=== PATIENT | male | born 1950 | race Caucasian/White ===

== ENCOUNTER 2016-12-06 19:11 | Inpatient (IN) | payer MEDICARE ==
[~2016-12-06] VITALS: Ht 182.9 cm; Wt 71.0 kg
[2016-12-06 19:46] VITALS: BP 103/53; PULSE 88; RESP 16; O2SAT 96
--- NOTE | 2016-12-06 19:56 | ED.REPORT ---
HPI-Hip/Pelvis Prob/Inj Date of Service Dec 06, 2016 ED Provider: Hunter Sagastume PA-C Toby is an otherwise healthy 66-year-old male presenting to the emergency department with a chief complaint of left hip pain. Patient reports he was hiking down a trail when his pulse slipped causing him to lose his balance and fall over. He rolled down an embankment which he estimates to be approximately 10 feet. He denies any period of free-fall. He reports striking his head but denies losing consciousness. Patient was unable to walk due to pain in his left hip and was dragged back to the [place] by his sister. He remained there for several hours before being helped out by EMS. Also complains of right ankle pain. Nursing Notes Stated Complaint: FALL,LEFT HIP PAIN Chief Complaint: Multiple Trauma/Fall Nursing Notes Reviewed: Yes Allergies: Coded Allergies: Penicillins (Verified Allergy, Unknown, 12/06/16) General Time Seen by Provider: 19:43 Chief Complaint Hip injury left Past Medical History Past Medical History Denies Review of Systems Review of Systems Note: Negative unless stated otherwise in history of present illness Physical Exam General: Well appearing, well developed, well nourished, no acute distress. Left hip: Normal to inspection, nontender. Left knee: Normal to inspection, nontender Left ankle/foot: normal to inspection, nontender, DP and PT pulses 2+. Right/ankle: Normal to inspection, negative tenderness over medial or lateral malleoli, base of fifth minute tarsal, navicular. Nontender over ATF, PTF, calcaneofibular and deltoid ligaments. Achilles is intact. DP and PT pulses 2+ . Head: Small, shallow 2 cm laceration above left eye. Neck: Negative midline spinous process tenderness, good range of motion. Eyes: No scleral icterus or injection. No discharge. Vision grossly intact. ENT: Voice clear, hearing grossly intact. Respiratory: Regular rate and rhythm. Breath sounds present, clear to auscultation and equal bilaterally. No respiratory distress. No increased work of breathing, speaks in complete sentences. Cardiovascular: Regular rate and rhythm, without murmur, gallop or rub. No pedal edema. Gastrointestinal: Abdomen flat and non-tender without guarding or rebound. Bowel sounds normoactive. Skin: Warm and dry. Neurological: Grossly nonfocal. Psychological: Alert and oriented. Speech appropriate, linear and logical. Behavior appropriate. Initial Vital Signs Vital Signs (First) Date Time Temp Pulse Resp B/P Pulse Ox O2 Delivery O2 Flow Rate FiO2 12/06/16 19:46 37.4 88 16 103/53 96 Room Air Normal Interpretation & Diagnostics Interpretation & Diagnostics: PROCEDURE: CT CERVICAL SPINE WITHOUT CONTRAST ([id number]) INDICATIONS: fall IMPRESSION: No fracture. No acute osseous lesion. If there are persistent symptoms or continued clinical suspicion for pathology, then MRI should be considered for further evaluation. PROCEDURE: CT BRAIN WITHOUT CONTRAST ([id number]) INDICATIONS: fall with head injury IMPRESSION: No acute intracranial disease process. Lab Results Interpretation Test 12/06/16 20:20 X-Ray Chest Interpretation Chest Xray Interpretation: PROCEDURE: X-RAY CHEST ONE VIEW ([id number]) INDICATIONS: PRE-OP, left hip fracture. IMPRESSION: No acute cardiopulmonary disease process. Interpretation / Wet Read by: Interpret - Radiologist X-Ray Interpretation Xray Interpretation: PROCEDURE: X-RAY PELVIS W/LAT HIP (LT) ([id number]) INDICATIONS: fall with pain IMPRESSION: Transcervical fracture of the left femoral neck. Interpretation / Wet Read by: Interpret - Radiologist, Interp - [facility] Procedures Laceration Management Time: 20:46 Wound Length: 3 cm Local Anesthesia: Other (none) Wound Preparation: Shurclens, Betadine Irrigation: 150 cc Foreign Body Explore / Removal: Explored for foreign body Repair Skin: Dermabond Closure Layers: 1 Post-Procedure / Complications: Dressing applied, No complications, Condition improved, Tolerated procedure well, Patient stable Re-Eval/Medical Decision Med Decision/Clinical Course Otherwise healthy 66-year-old male presents to emergency department complaining of left hip pain after a fall from a hiking [place] apparently precipitated by a slip with a ski pole. Patient reports striking his head but denies losing consciousness. Complains of right ankle pain His exam is somewhat limited as the leg remains in a splint, but his left hip and knee are nontender. Neurovascularly intact distal. Examination of the right foot and ankle is normal as well. He has a small, shallow laceration above his left eye. Patient was medicated with fentanyl by medics and I am concerned that his exam is not completely reliable to rule out head or neck injury. CT of the head and C-spine are ordered and returned normal. X-ray reveals a left femoral neck fracture. I discussed the case with Dr. Quintero , who requested patient be nothing by mouth after midnight and admitted to the hospitalist service. Consult in the morning. Laceration above left eye is treated per the above note. Discussed the case with hospitalist, who accepts admission. The patient is transferred to the floor in stable condition. Consultation #1: Referral / Consult Name: Cristian Quintero DO Call Returned at: 20:47 Note: Request patient be made nothing by mouth after midnight, admitted to hospitalist service. She will consult in the morning. Consultation #2: Referral / Consult Name: Meche Marcus MD Consulted With: Hospitalist Call Returned at: 21:14 Note: Discussed the case, accepted admit. Discharge & Departure Impression: Primary Impression: Fracture of femoral neck, left Encounter type: initial encounter Fracture type: closed Qualified Code: S72.002A - Fracture of unspecified part of neck of left femur, initial encounter for closed fracture Disposition: ADMITTED TO HOSPITAL EDSupervising Provider for APC: Camden Marquez Seth PA-C Dec 06, 2016 19:56
--- NOTE | 2016-12-06 20:35 | DRSVH ---
PROCEDURE: CT CERVICAL SPINE WITHOUT CONTRAST ([id number]) INDICATIONS: fall TECHNIQUE: Noncontrast 3 mm thick sections acquired from the skull base to the T4 level. Sagittal and coronal r eformats were then constructed. For radiation dose reduction, the following was used: automated exp osure control, adjustment of mA and/or kV according to patient size. COMPARISON: None. FINDINGS: Image quality: Excellent. Bones: There is reversal of normal cervical spine curvature. No fractures or dislocations. Visualiz ed superior ribs are intact. There is 2 mm of C3-C4 degenerative anterolisthesis. There is trace, ap proximately 1 mm of C4-C5 and C5-C6 degenerative retrolisthesis. Spine degenerative disease and face t arthropathy noted. Soft tissues: Prevertebral soft tissues are normal in thickness. No paravertebral hematomas. No ap ical pneumothoraces. IMPRESSION: No fracture. No acute osseous lesion. If there are persistent symptoms or continued clin ical suspicion for pathology, then MRI should be considered for further evaluation. Dictated by: Sindy Canela MD, PhD on 12/06/2016 at 20:28 Approved by: Sindy Canela MD, PhD on 12/06/2016 at 20:34
--- NOTE | 2016-12-06 20:37 | DRSVH ---
PROCEDURE: CT BRAIN WITHOUT CONTRAST ([id number]) INDICATIONS: fall with head injury TECHNIQUE: Noncontrast 4.5 mm thick angled axial sections acquired from the foramen magnum to the vertex, with c oronal reformats. COMPARISON: None. FINDINGS: Image quality: Excellent. CSF spaces: Basal cisterns are patent. No extra-axial fluid collections. The ventricles are symmet lee ann in size and shape. Brain: No intracranial bleeds or masses. There is cerebral volume loss for age, with resultant vent ricular and sulcal prominence. There are periventricular and deep white matter chronic small vessel ischemic changes. There is intracranial internal carotid artery atherosclerosis. Skull and face: Calvarium and visualized facial bones appear intact, without suspicious lesions. Sinuses: Mild mucosal thickening noted in the left maxillary sinus. The mastoids are clear. IMPRESSION: No acute intracranial disease process. Dictated by: Sindy Canela MD, PhD on 12/06/2016 at 20:34 Approved by: Sindy Canela MD, PhD on 12/06/2016 at 20:36
--- NOTE | 2016-12-06 20:38 | DRSVH ---
PROCEDURE: X-RAY PELVIS W/LAT HIP (LT) ([id number]) INDICATIONS: fall with pain TECHNIQUE: AP pelvis with lateral view(s) of the left hip(s). COMPARISON: None. FINDINGS: Bones: Transcervical fracture of the left femoral neck is noted which is in varus angulation. Soft tissues: The visualized bowel gas pattern is normal. No suspicious soft tissue calcifications. IMPRESSION: Transcervical fracture of the left femoral neck. Dictated by: Sindy Canela MD, PhD on 12/06/2016 at 20:36 Approved by: Sindy Canela MD, PhD on 12/06/2016 at 20:37
--- NOTE | 2016-12-06 20:53 | DRSVH ---
PROCEDURE: X-RAY CHEST ONE VIEW ([id number]) INDICATIONS: PRE-OP, left hip fracture. TECHNIQUE: One view of the chest was acquired. COMPARISON: None. FINDINGS: Surgical changes and devices: None. Lungs and pleura: No pleural effusions or pneumothorax. Lungs are clear. Calcified granuloma noted in the right lung apex. Mediastinum: Mediastinal contours appear normal. Heart size is normal. Bones and chest wall: No suspicious bony lesions. Overlying soft tissues appear unremarkable. IMPRESSION: No acute cardiopulmonary disease process. Dictated by: Sindy Canela MD, PhD on 12/06/2016 at 20:51 Approved by: Sindy Canela MD, PhD on 12/06/2016 at 20:52
[2016-12-06] MEDS ORDERED: Tissue Adhesive Liq (CS Supplied) TOPICAL ONE (20:55)
[2016-12-06] MEDS ORDERED: HYDROmorphone 0.5 mg/0.5 mL iSecure Syringe IVPUSH PRN (21:25)
[2016-12-06] MEDS ORDERED: Alum-Mag Hydrox-Simeth 30 mL Suspension PO PRN (22:00)
[2016-12-06] MEDS ORDERED: Ondansetron 2 mg/mL 2 mL Inj IVPUSH PRN ×2 (22:00→22:50)
[2016-12-06 22:18] LABS: APPEARANCE,URINE CLEAR (CLEAR,HAZY); COLOR,URINE YELLOW (YELLOW); OCCULT BLOOD,URINE NEGATIVE (NEGATIVE); UROBILINOGEN,URINE NORMAL (NORMAL)
[2016-12-06 22:33] LABS: BASOPHILS % (AUTO) 0.1 % (0-3); EOSINOPHILS % (AUTO) 0 % (0-5); MONOCYTES % (AUTO) 6.3 % (4-12); Mean Corpuscular Hemoglobin 32.9 pg (27.0-35.0); Mean Corpuscular Volume 95.1 fL (81-100); Platelet Count 185 bil/L (150-400)
[2016-12-06 22:48] VITALS: BP 121/64; PULSE 87; RESP 16; O2SAT 97
--- NOTE | 2016-12-06 23:09 | PCM.HPMED ---
Subjective Date of Service Dec 06, 2016 Primary Provider: Admitting Physician: Meche Marcus MD Primary Care Physician: Nopcp Attending Physician: Meche Marcus MD Admit Status: From the Emergency Department, Full Admit, Non-Telemetry Chief Complaint: Ground-level fall with left femoral neck fracture. History of Present Illness: This is a 66-year-old male who presented to the emergency room with complaints of left hip pain. Earlier today he was hiking down in [place] and ended up slipping and falling. He lost his balance. So did hit his head and has superficial abrasion on left forehead area. Patient was brought in by EMS. His evaluation in the emergency room reveals transcervical fracture left femoral neck. This laceration of his forehead was closed with Dermabond in the emergency room. Patient denies any history of heart problems or pulmonary problems. He denies chest pain, shortness of breath, cough, fevers or chills. Review of Systems: All other review systems are reviewed and are negative except for as in history of present illness. Allergies Coded Allergies: Penicillins (Verified Allergy, Unknown, 12/06/16) Home Medications None PMH Surgical History Status post tonsillectomy Social History Hx Alcohol Use: Yes (at most 1 drink per month) Hx Tobacco Use: No Smoking Status: Former Smoker (approximately 20 years ago) Living Arrangement: with Friends/Roommate Exam Vital Signs Vital Sign - Last Date Time Temp Pulse Resp B/P Pulse Ox O2 Delivery O2 Flow Rate FiO2 12/06/16 22:48 37.1 87 16 121/64 97 Room Air Exam Constitutional: Middle-aged male in no acute distress Head: Normocephalic, atraumatic Eyes PERRLA DC EOMI Mouth: No lesions Neck: No adenopathy carotids 2+ over 4 without bruits Chest: Clear to auscultation Cor: Regular rate and rhythm S1-S2 without murmur Abdomen: Soft nontender bowel sounds present Extremities: No pedal edema, left leg is externally rotated Skin: No rashes Neuro: Alert and oriented 3, motor strength is intact bilaterally Lab and Diagnostics Labs Laboratory Tests 72 Hours Test 12/06/16 20:20 12/06/16 21:56 12/06/16 22:24 Hold Urine Received (Received) Urine Color Yellow (YELLOW) Urine Appearance Clear (CLEAR,HAZY) Urine pH 8.0 (5.0-8.0) Urine Specific [place] 1.015 (1.003-1.035) Urine Protein Tracemg/dL (NEG,TRACE) Urine Glucose (UA) Negativemg/dL (NEGATIVE) Urine Ketones >80mg/dL (NEGATIVE) Urine Occult Blood Negative (NEGATIVE) Urine Nitrite Negative (NEGATIVE) Urine Bilirubin Negative (NEGATIVE) Urine Urobilinogen Normalmg/dL (NORMAL) Urine Leukocyte Esterase Negative (NEGATIVE) Urine RBC 0-2/hpf (0-2) Urine WBC 0-5/hpf (0-5) Urine Epithelial Cells Occasional/hpf (NONE-MOD) Urine Crystals None seen (NONE SEEN) Urine Bacteria Few/hpf (NONE-FEW) Urine Hyaline Casts None/lpf (NONE) Urine Granular Casts None seen (NONE SEEN) Urine Waxy Casts None seen (NONE SEEN) Urine Red Blood Cell Casts None seen (NONE SEEN) Urine White Blood Cell Casts None seen (NONE SEEN) Urine Mucus Present (None Seen) Urine Trichomonas None seen (NONE SEEN) Urine Yeast None (NONE SEEN) Urinalysis Comment None Urine Culture Reflexed Not indicated White Blood Count 8.5th/mm3 (3.8-10.1) Red Blood Count 4.07mil/mm3 (4.40-5.80) Hemoglobin 13.4g/dL (13.8-17.2) Hematocrit 38.7% (41.0-50.0) Mean Corpuscular Volume 95.1fL (81-100) Mean Corpuscular Hemoglobin 32.9pg (27.0-35.0) Mean Corpuscular Hemoglobin Concent 34.6% (32.0-37.0) Red Cell Distribution Width 12.0% (12.3-15.4) Platelet Count 185bil/L (150-400) Neutrophils (%) (Auto) 85.0% (40-74) Lymphocytes (%) (Auto) 8.4% (14-46) Monocytes (%) (Auto) 6.3% (4-12) Eosinophils (%) (Auto) 0% (0-5) Basophils (%) (Auto) 0.1% (0-3) Sodium Level 131mEq/L (134-144) Potassium Level 3.9mEq/L (3.5-5.2) Chloride Level 97mEq/L (97-108) Carbon Dioxide Level 20mmol/L (18-29) Blood Urea Nitrogen 17mg/dL (8-27) Creatinine 0.65mg/dL (0.76-1.27) Estimat Glomerular Filtration Rate 131mL/min (>59) Glucose Level 113mg/dL (60-99) Calcium Level 8.2mg/dL (8.5-10.1) Total Bilirubin 0.9mg/dL (0.0-1.2) Aspartate Amino Transf (AST/SGOT) 31U/L (0-50) Alanine Aminotransferase (ALT/SGPT) 18U/L (0-44) Alkaline Phosphatase 40U/L (25-160) Total Protein 6.1g/dL (6.4-8.4) Albumin 3.7g/dL (3.4-5.0) Hold Brown Top Tube Received (Received) Result Diagram: 12/06/16222312/06/162223 X-Rays, CTs and MRIs PROCEDURE: X-RAY CHEST ONE VIEW ([id number]) INDICATIONS: PRE-OP, left hip fracture. TECHNIQUE: One view of the chest was acquired. COMPARISON: None. FINDINGS: Surgical changes and devices: None. Lungs and pleura: No pleural effusions or pneumothorax. Lungs are clear. Calcified granuloma noted in the right lung apex. Mediastinum: Mediastinal contours appear normal. Heart size is normal. Bones and chest wall: No suspicious bony lesions. Overlying soft tissues appear unremarkable. IMPRESSION: No acute cardiopulmonary disease process. Dictated by: Sindy Canela MD, PhD on 12/06/2016 at 20:51 Approved by: iSndy Canela MD, PhD on 12/06/2016 at 20:52 12-lead ECG Pending at the time this dictation Assessment & Plan # Left femoral neck fracture, acute, present on admission -Orthopedic surgery has already been notified regarding this patient and will see in a.m. -IV morphine when necessary pain -Check 12-lead EKG -Complete metabolic panel pending # DVT prophylaxis -Since surgery will occur tomorrow we will hold subcutaneous prophylactic anticoagulation -Use SCDs #CODE STATUS -Focal VTE Prophylaxis: SCDs Resuscitation Status: CPR: Attempt Resuscitation Time spent 60 minutes Meche Marcsu MD Dec 06, 2016 23:08
[2016-12-06 23:10] VITALS: BP 112/68; PULSE 88; RESP 16; O2SAT 98
[2016-12-07] VITALS (14 sets, daily range): BP systolic 108–143; BP diastolic 59–76; PULSE 64–113; RESP 10–17; O2SAT 98–100
[2016-12-07] MEDS ORDERED: ASCO-412 PO (00:20)
[2016-12-07] MEDS: 0.9% Sodium Chloride 1,000 ML IV SCH ×3 (02:17→18:37)
--- NOTE | 2016-12-07 03:35 | NUR ---
Admit Pt is alert and oriented X3. Pleasant and able to make needs known. Arrived to unit from ED via stretcher around 2300. No complaint of pain. Denies nausea, vomiting or diarrhea. Sliding transfer from stretcher to bed with four staff assist. NPO after midnight per orders and normal saline running at 100ml/hr. No issue at this current moment. Care continues.
[2016-12-07 06:15] LABS: BASOPHILS % (AUTO) 0.1 % (0-3); EOSINOPHILS % (AUTO) 0.8 % (0-5); Mean Corpuscular Hemoglobin 33.3 pg (27.0-35.0); Mean Corpuscular Volume 95.2 fL (81-100); NEUTROPHILS % (AUTO) 74.8 % (40-74); Platelet Count 202 bil/L (150-400)
--- NOTE | 2016-12-07 08:46 | CONS ---
[address] [address] CONSULTATION REPORT PATIENT: KIZZY TENORIO : 1950 MR#: [id number] ADMIT: 12/06/2016 JOB ID: [id number] DATE OF SERVICE: 12/07/2016 ORTHOPEDIC CONSULT: CHIEF COMPLAINT: Left hip pain. HISTORY OF PRESENT ILLNESS: This is a pleasant 66-year-old male that presented yesterday evening with left hip pain. He was hiking for the first time utilizing hiking poles when he states he twisted wrong and landed onto his left side. He immediately had left hip pain and was unable to further ambulate with the left lower extremity. He was transported to the hospital here at [facility], where he was diagnosed with a femoral neck fracture. Orthopedics was consulted for further evaluation and treatment. The patient complains mainly of left hip pain. He states he did have some ankle pain yesterday but it has since resolved. He denies any paresthesias. He denies any other associated symptoms or injuries. PAST MEDICAL HISTORY: Negative. PAST SURGICAL HISTORY: Negative. FAMILY HISTORY: Noncontributory. SOCIAL HISTORY: The patient denies any tobacco utilization, drinks occasional alcohol, lives with a friend in [facility]. MEDICATIONS: None. ALLERGIES: PENICILLIN with unknown allergy. REVIEW OF SYSTEMS: The patient denies any fevers, sweats, chills, chest pain, shortness of breath, nausea, vomiting, or diarrhea. Complains mainly of left hip pain as described in the history of present illness. PHYSICAL EXAMINATION: General: The patient is alert, in no apparent distress. HEENT: Normocephalic, atraumatic. Extraocular movements intact. Nares patent. Lungs: No audible wheezes or signs of respiratory distress. Neuro: Cranial nerves 2-12 are intact. Extremities: On gross observation of the patient's left lower extremity it is short and externally rotated compared to the contralateral side. There are no open wounds, abrasions, or ecchymosis. He has tenderness to palpation to the lateral head and pain with any attempts at log roll or axial loading of the left lower extremity. There are palpable dorsalis pedis and posterior tib pulses. No tenderness to the medial or lateral malleoli. The patient is able to dorsiflex and plantar flex the ankle without any difficulty. There is also no tenderness to palpation of the medial or lateral joint lines of the knee without any palpable effusion. Range of motion of the knee is limited secondary to reproduction of pain to the hip with knee range of motion. DIAGNOSTIC STUDIES: AP of the pelvis, as was as lateral of the hip, was obtained yesterday evening in the emergency department. Demonstrate an intracapsular displaced femoral neck fracture. IMPRESSION: Left intracapsular displaced femoral neck fracture. PLAN: Discussed with the patient at length his diagnosis with a displaced intracapsular femoral neck fracture. Discussed with him proceeding with a left hip hemiarthroplasty. He understands risks include, but are not limited to, neurovascular injury, tendon injury, infection, failure of fixation, instability, stiffness, all which may require further intervention. The patient had all questions answered. Consent was signed and placed in the chart. The patient will be scheduled this afternoon for a left hip hemiarthroplasty. Following surgery the patient will be weightbearing as tolerated onto the left lower extremity. He will either be discharged home with home health versus rehab versus senior care facility over the weekend. The patient has very minimal comorbidities and is relatively active for his age, and I feel he will rehab quickly and will be able to go home with home health. He will follow up in two weeks with one of our PAs for a wound recheck and then with me four weeks after that.
[2016-12-07] MEDS ORDERED: Propofol 10,000 mCg/mL 20 mL Inj ONE (11:56)
[2016-12-07] MEDS ORDERED: Ondansetron 2 mg/mL 2 mL Inj ONE (11:56)
[2016-12-07] MEDS ORDERED: EPHEDrine/NS 5 mg/mL 5 mL Syringe ONE (11:56)
[2016-12-07] MEDS ORDERED: fentaNYL-PF 50 mCg/mL 2 mL Inj ONE (11:56)
[2016-12-07] MEDS ORDERED: Dexamethasone 4 mg/mL Inj ONE (11:56)
[2016-12-07] MEDS ORDERED: Lactated Ringer's 500 ML IV PRN (12:20)
[2016-12-07] MEDS ORDERED: HYDROmorphone 1 mg/mL Inj IVPUSH PRN (12:20)
[2016-12-07] MEDS ORDERED: MetoCLOpramide 5 mg/mL 2 mL Inj IVPUSH PRN (12:20)
[2016-12-07] MEDS ORDERED: Ondansetron 2 mg/mL 2 mL Inj IVPUSH PRN ×2 (12:20→15:40)
[2016-12-07] MEDS ORDERED: Phenylephrine 10,000 mCg/mL Inj IVPUSH PRN (12:20)
[2016-12-07] MEDS ORDERED: fentaNYL-PF 50 mCg/mL 2 mL Inj IVPUSH PRN (12:20)
[2016-12-07] MEDS ORDERED: EPHEDrine Sulfate 50 mg/mL Inj IVPUSH PRN (12:20)
[2016-12-07] MEDS ORDERED: Lactated Ringer's 1,000 ML IV SCH (12:20)
[2016-12-07] MEDS ORDERED: Dexamethasone 4 mg/mL Inj IVPUSH PRN (12:20)
--- NOTE | 2016-12-07 12:20 | PCM.HPANE ---
Patient Data Date of Service: Dec 07, 2016 ([id number]) Surgeon Admitting Provider:Meche Marcus MD Attending Provider:Aden Cameron MD Primary Care Physician:Nopcp Other Provider: Reason for Visit L Femoral Neck Fracture Ht/WT & BMI Height (Feet): 6 Height (Inches): 0.00 Weight (Kilograms): 71.000 Body Mass Index .00 Allergies Coded Allergies: Penicillins (Verified Allergy, Unknown, 12/06/16) Past Anesthesia History Anesthesia History: Denies:: Anesthesia Reactions Diabetes History Hx Diabetes?: No MRSA MRSA: No Medications Hypertension Medication: No Home Meds Incl Beta Aracelis: No Reported Medications Ascorbic Acid/Ascorbate Sodium (Vit C-Evangelina Hips 500 mg Chew Tb)500 Mg Tab.chew2, 000 Mg PO 12/07/16 History History of ENT Problems?: No HEENT History: Denies:: Cataracts Dysphagia Glaucoma Sinus Problem Denture Type: None Teeth Condition: Within Normal Limits Hx of Heart Problems?: No Cardiovascular History: Denies:: Cardiac Surgery Chest Pain Congestive Heart Failure Heart Murmur Irregular Heartbeat Hx of Respiratory Problem?: Yes Respiratory History: Denies:: Asthma Hx Neurologic Problems?: No Hx of GI Problems?: No Hx of Problems?: No Male Hx: Denies:: Prostate Problems Hx Musculoskeletal Problems?: No Hx of Psycho/Social Problems?: No Hx Surgeries?: No Hx Any Other Health Problems?: No History Blood Transfusions: Positive for:: Accept Blood Products? Denies:: Blood Transfuse Reaction Blood Transfusions Hx Alcohol Use: YesAlcoholic Drinks Per Day: occasionallyHx Substance Use: No Smoking Status: Former Smoker (approximately 20 years ago) Have You Smoked inLast 12 mo: No Stop/Bang Treated for Sleep Apnea?: No Do You Have a CPAP Machine?: No S-Snoring: Do You Snore Loudly: No T-Tired: feel tired, fatigued: No O-Obsered: Observed not breath: No P-Blood Pressure: treated: No B- Body Mass Index > 35 kg/m2: No A- Age over 50: Yes N- Neck Large Circumference: No G- Gender Male: Yes MODESTO Total Score: 1 MODESTO Risk Assessment: Low Risk, <3 Yes Risk Assessment Category Category 1A: Patient has history of documented sleep apnea, and HAS NOT received any narcotic, sedative or anesthesia administration during this stay. Category 1B: Patient has history of documented sleep apnea, and HAS received any narcotic , sedative or anesthesia administration during this stay Category 2: Patient has SUSPECTED Obstructive Sleep Apnea, and HAS received any narcotic , sedative or anesthesia administration during this stay. Category 3: Patient has SUSPECTED Obstructive Sleep Apnea and HAS NOT received narcotic, sedative or anesthesia administration during this stay. Category 4: Outpatient in Procedural Areas with known sleep apnea or who screen positive for High Risk via the STOP/BANG questionnaire. Exam Exam Vital Signs Vital Signs Date Time Temp Pulse Resp B/P Pulse Ox O2 Delivery O2 Flow Rate FiO2 12/07/16 09:08 37.0 86 16 132/76 100 Room Air 12/07/16 05:10 36.8 85 16 123/70 99 Room Air General Appearance: Alert, Oriented X3 HEENT/AIRWAY: MP 1 Lungs: Clear to Auscultation Heart: Exam Unremarkable Meds/Labs/Diagnostics Admission Meds Current Medications Non-Formulary Medication 1 ea 1 ea ONCE ONCE TOPICAL Last administered on 12/06 21:40; Start 12/06/16 at 20:55; Stop 12/06/16 at 20:56; Status DC Sodium Chloride (Normal Saline) 1,000 ml @ 100 mls/hr Q10H IV Last administered on 12/07/16 10:34; Start 12/06/16 at 22:49 Labs Test 12/06/16 20:20 12/06/16 21:56 12/06/16 22:24 12/06/16 23:40 Hold Urine Received (Received) Urine Color Yellow (YELLOW) Urine Appearance Clear (CLEAR,HAZY) Urine pH 8.0 (5.0-8.0) Urine Specific [place] 1.015 (1.003-1.035) Urine Protein Tracemg/dL (NEG,TRACE) Urine Glucose (UA) Negativemg/dL (NEGATIVE) Urine Ketones >80mg/dL (NEGATIVE) Urine Occult Blood Negative (NEGATIVE) Urine Nitrite Negative (NEGATIVE) Urine Bilirubin Negative (NEGATIVE) Urine Urobilinogen Normalmg/dL (NORMAL) Urine Leukocyte Esterase Negative (NEGATIVE) Urine RBC 0-2/hpf (0-2) Urine WBC 0-5/hpf (0-5) Urine Epithelial Cells Occasional/hpf (NONE-MOD) Urine Crystals None seen (NONE SEEN) Urine Bacteria Few/hpf (NONE-FEW) Urine Hyaline Casts None/lpf (NONE) Urine Granular Casts None seen (NONE SEEN) Urine Waxy Casts None seen (NONE SEEN) Urine Red Blood Cell Casts None seen (NONE SEEN) Urine White Blood Cell Casts None seen (NONE SEEN) Urine Mucus Present (None Seen) Urine Trichomonas None seen (NONE SEEN) Urine Yeast None (NONE SEEN) Urinalysis Comment None Urine Culture Reflexed Not indicated Hold Brown Top Tube Received (Received) Alcohols < 10mg/dL (0-10) Test 12/07/16 05:45 White Blood Count 7.3th/mm3 (3.8-10.1) Red Blood Count 4.20mil/mm3 (4.40-5.80) Hemoglobin 14.0g/dL (13.8-17.2) Hematocrit 40.0% (41.0-50.0) Mean Corpuscular Volume 95.2fL (81-100) Mean Corpuscular Hemoglobin 33.3pg (27.0-35.0) Mean Corpuscular Hemoglobin Concent 35.0% (32.0-37.0) Red Cell Distribution Width 12.5% (12.3-15.4) Platelet Count 202bil/L (150-400) Neutrophils (%) (Auto) 74.8% (40-74) Lymphocytes (%) (Auto) 14.2% (14-46) Monocytes (%) (Auto) 10.0% (4-12) Eosinophils (%) (Auto) 0.8% (0-5) Basophils (%) (Auto) 0.1% (0-3) Sodium Level 139mEq/L (134-144) Potassium Level 3.9mEq/L (3.5-5.2) Chloride Level 103mEq/L (97-108) Carbon Dioxide Level 23mmol/L (18-29) Blood Urea Nitrogen 14mg/dL (8-27) Creatinine 0.65mg/dL (0.76-1.27) Estimat Glomerular Filtration Rate 131mL/min (>59) Glucose Level 107mg/dL (60-99) Calcium Level 8.6mg/dL (8.5-10.1) Magnesium Level 2.0mg/dL (1.6-2.6) Total Bilirubin 0.8mg/dL (0.0-1.2) Aspartate Amino Transf (AST/SGOT) 33U/L (0-50) Alanine Aminotransferase (ALT/SGPT) 18U/L (0-44) Alkaline Phosphatase 41U/L (25-160) Total Protein 5.9g/dL (6.4-8.4) Albumin 3.7g/dL (3.4-5.0) Plan Impression Patient chart reviewed, patient interviewed and anesthestic plan with risks, benefits, and alternatives discussed, and informed consent obtained. NPO per Anesth. Guidelines: Yes ASA Physical Status: ASA1 Normal Healthy Anesthetic Plan: SAB Bene/Risks/Altern/Consents: Yes HP Complete Prior to Induction: Yes Nitin Alexandre MD Dec 07, 2016 12:20
[2016-12-07] MEDS ORDERED: Lactated Ringer's 1,000 ML IV ONE ×2 (12:33→14:55)
--- NOTE | 2016-12-07 14:38 | PCM.PNMED ---
Subjective Date of Service Dec 07, 2016 Subjective Pain controlled. Awaiting surgery. Exam Vital Signs Vital Sign - Last Date Time Temp Pulse Resp B/P Pulse Ox O2 Delivery O2 Flow Rate FiO2 12/07/16 09:08 37.0 86 16 132/76 100 Room Air Intake and Output 12/06/16 12/06/16 12/07/16 Cumulative From/Thru 15:00 23:00 07:00 12/06/16 23:27 - 12/07/16 06:52 Intake Total 534 ml 534 ml Output Total 2075 ml 2075 ml Balance -1541 ml -1541 ml Intake Oral 100 ml 100 ml IV Total 434 ml 434 ml Output Urine Total 2075 ml 2075 ml # Bowel Movements 0 0 Exam Constitutional: Middle-aged male in no acute distress Head: Normocephalic, atraumatic Eyes PERRLA DC EOMI Mouth: No lesions Neck: No adenopathy carotids 2+ over 4 without bruits Chest: Clear to auscultation Cor: Regular rate and rhythm S1-S2 without murmur Abdomen: Soft nontender bowel sounds present Extremities: No pedal edema, left leg is externally rotated Skin: No rashes Neuro: Alert and oriented 3, motor strength is intact bilaterally IVs and Medications Medications Reviewed: Medications were reviewed in detail Lab and Diagnostics Result Diagram: 12/07/1654412/07/1645 X-Rays, CTs and MRIs PROCEDURE: X-RAY CHEST ONE VIEW ([id number]) INDICATIONS: PRE-OP, left hip fracture. TECHNIQUE: One view of the chest was acquired. COMPARISON: None. FINDINGS: Surgical changes and devices: None. Lungs and pleura: No pleural effusions or pneumothorax. Lungs are clear. Calcified granuloma noted in the right lung apex. Mediastinum: Mediastinal contours appear normal. Heart size is normal. Bones and chest wall: No suspicious bony lesions. Overlying soft tissues appear unremarkable. IMPRESSION: No acute cardiopulmonary disease process. Dictated by: Sindy Canela MD, PhD on 12/06/2016 at 20:51 Approved by: Sindy Canela MD, PhD on 12/06/2016 at 20:52 Assessment & Plan # Left femoral neck fracture, acute, present on admission -Orthopedic surgery consulted.OR later today -IV morphine when necessary pain -patient able to take > 2 flight of stairs with out any issues .METs 4-10 .medically optimized for procedure #CODE STATUS -full VTE Prophylaxis: SCDs VTE Mechanical Devices: Intermittant Pneumatic CD Resuscitation Status: CPR: Attempt Resuscitation Aden Cameron MD Dec 07, 2016 14:38 Resuscitation Status: CPR: Attempt Resuscitation Aden Cameron MD Dec 07, 2016 14:38
[2016-12-07] MEDS ORDERED: Bupivacaine-MPF 0.25% 30 mL Inj INFILTRATE ONE (15:02)
[2016-12-07] MEDS ORDERED: diphenhydrAMINE 25 mg Capsule PO PRN (15:40)
[2016-12-07] MEDS ORDERED: Magnesium Hydroxide 10 mL Oral Concentration PO PRN (15:40)
[2016-12-07] MEDS ORDERED: Polyethylene Glycol (PEG) 17 Gm Powder PO PRN (15:40)
[2016-12-07] MEDS ORDERED: Sodium Biphos-Phos 133 mL Enema RECTAL PRN (15:40)
--- NOTE | 2016-12-07 15:54 | PCM.ANEP1 ---
Post Anesthesia PACU Phase 1 Assessment Vital Signs 36.5, 117/65, 100%, 20, 92 Vital Signs Date Time Temp Pulse Resp B/P Pulse Ox O2 Delivery O2 Flow Rate FiO2 12/07/16 09:08 37.0 86 16 132/76 100 Room Air Anesthetic Administered: SAB Level of Alertness: Awake, talking PETERSON's with Equal Strength: Yes Pain: No Nausea or Vomiting: No CV Function & Hydration Stable: Yes Airway Device: none Oxygen Delivery: Room Air Lungs: Clear to Auscultation Dermatome Level: Full Sensation Summary uneventful SAB PACU Phase 2 Assessment Complications: No Follow up Care: No Patient Instructions Provided: N/A Nitin Alexandre MD Dec 07, 2016 15:53
[2016-12-07] MEDS: Sodium Chloride LOK Flush 10 mL Syringe IV SCH (16:30)
--- NOTE | 2016-12-07 17:30 | DRSVH ---
PROCEDURE: X-RAY PELVIS W/LAT HIP (LT) ([id number]) INDICATIONS: post op TECHNIQUE: AP pelvis and lateral view of the left hip acquired. COMPARISON: [facility], , XR PELVIS W LATERAL HIP LT, 12/06/2016, 20:02. FINDINGS: Bones: Patient is status post left hip arthroplasty, with hardware components in expected positions. The hip joint appears congruent. The visualized bony structures appear intact. Soft tissues: Overlying postoperative changes are noted. No suspicious soft tissue densities. IMPRESSION: Normal alignment after left total hip arthroplasty. Dictated by: Cristian Ng M.D. on 12/07/2016 at 17:19 Approved by: Cristian Ng M.D. on 12/07/2016 at 17:29
--- NOTE | 2016-12-07 17:38 | NUR ---
Social Work- Initial Assessment/ Multidisciplinary Rounds Data: See Initial Assessment and Advance Directive Intervention for additional information. Pt discussed in rounds. Pt received surgery today. Pt is not ready for discharge at this time. [facility] acknowledges HH PT 3x weekly order. PT evaluation is pending. Pt is a 66 year old admitted for left femoral neck fracture per H&P. Pt's insurance is [facility]. Pt's PCP is Dr. Zhang, [employer]. Pt's readmit risk score is 0. [facility] met with pt and sister at bedside regarding discharge plan, SW role explained. Pt alert and oriented x3. Pt's capacity for self-care assessed. Pt resides in [place] in a home with a roommate. Pt is independent with ADLs and self-care. Pt uses no DME at baseline. Pt drives. Pt has no history with HH services. Pt has no history with SNF services. Pt has no DPOA on file, provided pt with paperwork. SW discussed HHPT order with pt and pt's homebound status. Pt is not typically homebound and is typically very active. Pt was hiking at the time of his hip fracture. Pt may be temporarily homebound after surgery. Pt is agreeable to HH services if needed at d/c but expressed an interest in doing outpt services instead. [facility] provided Discharge planning Checklist and requested that pt contact [employer] if needs identified. SW provided phone number and plan on whiteboard. Pt's sister confirms she will take him home at d/c. Pt agreeable. SW will continue to follow for HH vs. outpt PT needs. Assessment: Pt who is independent with ADLs and self-care Plan: Pt to d/c home with his sister to transport, [facility] will continue to follow for HH vs. outpt PT services DAO Ibarra Addendum: 12/07/16 at 1743 by MARSHA CUEVA Amended: Links added.
[2016-12-07] MEDS: Clindamycin Inj 600 MG in IV Premix 1 EACH IV SCH (19:54)
[2016-12-07] MEDS: Senna-Docusate 8.6-50 mg Tablet PO SCH (20:30)
[2016-12-08] VITALS (7 sets, daily range): BP systolic 100–132; BP diastolic 55–73; PULSE 99–105; RESP 16–18; O2SAT 96–99
[2016-12-08] MEDS: Sodium Chloride LOK Flush 10 mL Syringe IV SCH ×3 (00:30→16:30)
[2016-12-08] MEDS: 0.9% Sodium Chloride 1,000 ML IV SCH ×2 (02:27→12:51)
--- NOTE | 2016-12-08 03:25 | NUR ---
Activity On initial assessment, patient has no complaints of pain. Patient states he has a "sensation" on the left hip area. Patient practices yoga consistently and states he can control the onset of pain. Patient is very pleasant and cooperative with care. Patient denied evening dose of Colace and Senna. No complaints of n/v. Call light is within reach. Care continues.
[2016-12-08] MEDS: Clindamycin Inj 600 MG in IV Premix 1 EACH IV SCH (04:25)
[2016-12-08 06:14] LABS: BASOPHILS % (AUTO) 0 % (0-3); EOSINOPHILS % (AUTO) 0 % (0-5); MONOCYTES % (AUTO) 13.9 % (4-12); Mean Corpuscular Hemoglobin 33.2 pg (27.0-35.0); NEUTROPHILS % (AUTO) 72.5 % (40-74); Platelet Count 160 bil/L (150-400)
--- NOTE | 2016-12-08 07:36 | PCM.PNORTH ---
Subjective Date of Service: Dec 08, 2016 Visit Information: Reason for Visit L Femoral Neck Fracture Surgery/Surgery Date Post-Op Day # 1 Date of Admission: Dec 06, 2016 at 22:21 Hospital Day # 2 Subjective Patient is seen and examined with her sister in the room. He is postoperative day #1 status post left hip hemiarthroplasty. He denies any pain. He states he has some left hip tightness and a stretching sensation but really no pain. He was able to sleep on and off overnight. He is tolerating fluids but is yet to have any solid foods. He is having normal bladder function but is yet to have any bowel movement as he has not had any food for quite some time. He is yet to be seen by therapy but he states he is ready to get up and start moving around so he can progress. Objective Exam Objective Gen - alert, oriented, no apparent distress Extremities - dressing is clean, dry and intact Palpable dorsalis pedis and posterior tibial pulses Complete intact sensation throughout the left lower extremity + Dorsiflexion and plantarflexion of the ankle and toes without difficulty No calf tenderness, negative Homans Vital Signs and I/O Vital Sign - Last Date Time Temp Pulse Resp B/P Pulse Ox O2 Delivery O2 Flow Rate FiO2 12/08/16 04:59 36.9 105 16 125/69 97 Room Air Intake and Output 12/07/16 12/07/16 12/08/16 Cumulative From/Thru 15:00 23:00 07:00 12/06/16 23:27 - 12/08/16 05:20 Intake Total 2039 ml 700 ml 2297 ml 5570 ml Output Total 450 ml 1775 ml 1800 ml 6100 ml Balance 1589 ml -1075 ml 497 ml -530 ml Intake Oral 500 ml 1100 ml 1700 ml IV Total 2039 ml 200 ml 1197 ml 3870 ml Output Urine Total 450 ml 1475 ml 1800 ml 5800 ml Estimated Blood Loss 300 ml 300 ml # Bowel Movements 0 0 0 Lab & Micro Results Laboratory Tests Test 12/08/16 05:30 White Blood Count 6.8th/mm3 (3.8-10.1) Red Blood Count 3.71mil/mm3 (4.40-5.80) Hemoglobin 12.3g/dL (13.8-17.2) Hematocrit 36.0% (41.0-50.0) Mean Corpuscular Volume 97.0fL (81-100) Mean Corpuscular Hemoglobin 33.2pg (27.0-35.0) Mean Corpuscular Hemoglobin Concent 34.2% (32.0-37.0) Red Cell Distribution Width 12.7% (12.3-15.4) Platelet Count 160bil/L (150-400) Neutrophils (%) (Auto) 72.5% (40-74) Lymphocytes (%) (Auto) 13.5% (14-46) Monocytes (%) (Auto) 13.9% (4-12) Eosinophils (%) (Auto) 0% (0-5) Basophils (%) (Auto) 0% (0-3) Result Diagram: 12/08/16 0530 12/07/16 0545 Assessment & Plan Impression Postoperative #1 status post left hip hemiarthroplasty Problems: Plan Start working with physical therapy for gait training with a walker he is weightbearing as tolerated Dressing changes tomorrow Plan likely for discharge on Sunday 12/10 likely home with home health pending progress with physical therapy Follow-up in 2 weeks with me in the office VTE Prophylaxis: SCDs Resuscitation Status: CPR: Attempt Resuscitation Cristian Quintero DO Dec 08, 2016 07:36
[2016-12-08] MEDS: Senna-Docusate 8.6-50 mg Tablet PO SCH ×2 (08:07→20:30)
[2016-12-08] MEDS ORDERED: HYDROcodone-APAP 5-325 mg Tablet PO PRN (10:15)
--- NOTE | 2016-12-08 10:31 | PCM.PNORTH ---
Subjective Date of Service: Dec 08, 2016 Visit Information: Reason for Visit L Femoral Neck Fracture Surgery/Surgery Date Post-Op Day # Date of Admission: Dec 06, 2016 at 22:21 Hospital Day # Subjective Found patient awake and alert and sitting up in bed with no complaints of pain at this time. Patient is a very pleasant gentleman and appears otherwise slender and very fit. I have had a long rocío discussion with the patient regarding pain medication which he has refused up to this point. On movement this morning patient indicates that he did have significant pain at the left hip and does not understand this. Patient is holisticly oriented and is reticent to take pain medication postoperatively. I have explained to the patient that this will impact his recovery negatively if he is in pain and is unable to participate with physical therapy to achieve mobility. I also explained to him that immobility can result in DVT and pulmonary embolus which can result in a fatal scenario. I have also explained to him that if he is immobile for extended period of time he could suffer pneumonia which could also be very problematic for his health. I have assured the patient is morning that we do not wish to enforce anything upon him that he is not willing to participate in but that based on experience we understand that he should consider pain control medications postoperatively to have a normal and reasonable outcome regarding his treatment. Patient's sister is in the room during this process and is also holisticly oriented and is in agreement with the patient using some pain medication initially. Postop General: No Complaints, No Shortness of Breath, No Chest Pain, Good Appetite Objective Exam Objective Alert and oriented 3 and pleasant. Interoperative dressing is clean dry and intact. Calf and thigh are soft and nontender. Toe wiggle and sensation are intact at left lower extremity distally. [place] is absent. SCDs are absent. Bilateral thigh-high HOLLEY hose are absent. No physical therapy yet as of this note Vital Signs and I/O Vital Sign - Last Date Time Temp Pulse Resp B/P Pulse Ox O2 Delivery O2 Flow Rate FiO2 12/08/16 09:24 37.8 105 18 132/73 99 Room Air Intake and Output 12/07/16 12/07/16 12/08/16 Cumulative From/Thru 15:00 23:00 07:00 12/06/16 23:27 - 12/08/16 05:20 Intake Total 2039 ml 700 ml 2297 ml 5570 ml Output Total 450 ml 1775 ml 1800 ml 6100 ml Balance 1589 ml -1075 ml 497 ml -530 ml Intake Oral 500 ml 1100 ml 1700 ml IV Total 2039 ml 200 ml 1197 ml 3870 ml Output Urine Total 450 ml 1475 ml 1800 ml 5800 ml Estimated Blood Loss 300 ml 300 ml # Bowel Movements 0 0 0 Lab & Micro Results Laboratory Tests Test 12/08/16 05:30 White Blood Count 6.8th/mm3 (3.8-10.1) Red Blood Count 3.71mil/mm3 (4.40-5.80) Hemoglobin 12.3g/dL (13.8-17.2) Hematocrit 36.0% (41.0-50.0) Mean Corpuscular Volume 97.0fL (81-100) Mean Corpuscular Hemoglobin 33.2pg (27.0-35.0) Mean Corpuscular Hemoglobin Concent 34.2% (32.0-37.0) Red Cell Distribution Width 12.7% (12.3-15.4) Platelet Count 160bil/L (150-400) Neutrophils (%) (Auto) 72.5% (40-74) Lymphocytes (%) (Auto) 13.5% (14-46) Monocytes (%) (Auto) 13.9% (4-12) Eosinophils (%) (Auto) 0% (0-5) Basophils (%) (Auto) 0% (0-3) Result Diagram: 12/08/16 0530 12/07/16 0545 General Appearance: Alert, Oriented X3, Cooperative, No Acute Distress, Mild Distress Extremities: No Compartment Syndrom Noted, Thigh & Calf Soft/Nontender Postop Sensory Motor: Distal Motor Intact, Movement in Toes, Distal Sensation Intact Activity: Activity per PT, Ambulate with PT (weightbearing as tolerated on the left lower extremity using a front wheeled walker.) Catheters: None Assessment & Plan Impression Patient is a 66-year-old male seen today one day status post left hip hemiarthroplasty performed on 12/07/[address] Cristian Quintero. Problems: Plan Postop day #1 from left hip hemiarthroplasty performed on 12/07/[address] Cristian Quintero. Weightbearing as tolerated on the left lower extremity using a front wheeled walker. Anterior lateral hip precautions in effect. PAIN CONTROL; Patient is holisticly oriented and was initially refusing any pain medication. Patient has had pain on movement at the left hip but believes since he does not have pain when he is still that he does not need pain medication. I have had a long talk with the patient this morning and his sister regarding the use of pain medication and with this will mean for his recovery and his health during this period. He has agreed to use pain medication at this time and I have given the nursing staff a selection of medications that they may try. Continue by mouth pain medication as needed with lowest dose that we will allow patient to participate with physical therapy. I have placed orders for several pain medications including tramadol, [place] and Percocet. Patient is in agreement at this time with trying [place] initially prior to his first PT session. Continue Lovenox 40 mg subcutaneous daily 28 days postop for DVT prophylaxis. Keep operative dressing clean dry and intact. Change intraoperative dressing on postop day #2. Nursing please fit patient with bilateral thigh-high HOLLEY hose as ordered today. Nursing please use bilateral SCDs while patient is in bed. Follow up in 2 weeks at [facility] orthopedic clinic with mid-level provider for wound check and suture removal. Follow up in 6 weeks at [facility] orthopedic clinic with Dr. Cristian Quintero with AP pelvis and left crosstable lateral hip x-rays on arrival. Anticipate discharge on postoperative day 2 or 3 to home with sister as caregiver. VTE Prophylaxis: Sub-Q Enoxaparin (Lovenox 40 mg subcutaneous daily 28 days postop for DVT prophylaxis), SCDs (bilateral SCDs), HOLLEY Hose (bilateral thigh- high HOLLEY hose) Resuscitation Status: CPR: Attempt Resuscitation Harjinder Lake PA-C Dec 08, 2016 10:31
[2016-12-08] MEDS: HYDROcodone-APAP 7.5-325 mg Tablet PO PRN ×2 (10:43→14:25)
[2016-12-08] MEDS ORDERED: oxyCODONE-Acetamin 5-325 mg Tablet PO PRN (10:50)
--- NOTE | 2016-12-08 13:23 | NUR ---
Evaluation completed. Please go to "Notes" then click on "Assessments and Notes" (bottom left corner of screen). Then select appropriate discipline tab on top of screen.
--- NOTE | 2016-12-08 13:38 | NUR ---
pt stated he doesnt eat set meals that he grazes at different times and doesnt have set meal times. I will be documenting under nutrition, if i see him eating. He says he eats as much as his body needs.
--- NOTE | 2016-12-08 13:47 | OP ---
[address] [address] OPERATIVE REPORT PATIENT: KIZZY TENORIO : 1950 MR#: [id number] ADMIT: 12/06/2016 JOB ID: [id number] DATE OF SURGERY: 12/07/2016 SURGEON: Cristian Quintero DO. PREOPERATIVE DIAGNOSIS(ES): Left displaced intracapsular femoral neck fracture. POSTOPERATIVE DIAGNOSIS(ES): Left displaced intracapsular femoral neck fracture. PROCEDURE: Left hip hemiarthroplasty. TATTOO TECHNICIAN: Martha Guzman PA-C. The assistance of Armin Guzman PA-C, was necessary for help with retraction as well as for dislocation and relocation of the hip prosthesis. She was also used for primary closure at the conclusion of the case. ANESTHESIA: General. HISTORY: The patient is a pleasant 66-year-old male that fell while hiking, landing onto his left side. He was unable to further ambulate following the fall and presented to [facility] where he was diagnosed with a displaced intracapsular femoral neck fracture. Upon presentation, I discussed with the patient as well as his sister. We reviewed the radiographs and with the displaced femoral neck fracture, I discussed with the patient and his sister the risks, benefits, alternatives, indications to proceed with a left hip hemiarthroplasty. They understood the risks include, but are not limited to neurovascular injury, tendon injury, infection, dislocation, instability, all which may require further intervention. The patient had all questions answered as well as his sister and consent was signed and placed in chart. PROCEDURE IN DETAIL: The patient was brought to the operative suite and placed supine on the operating room table. Surgical time-out was performed. Everyone in the room was in agreement. After appropriate anesthesia was obtained, the patient was placed into the right lateral decubitus position with the body secured with posts. All prominences were well padded. The left hip was then prepped and draped in sterile fashion. A standard anterolateral incision was made centered at the greater trochanter. Dissection was carried down towards the tensor fascia which was split longitudinally in line with the skin incision. The underlying greater trochanter was then evaluated and the bursa off of the trochanter then debrided. The interval between the anterior third and the posterior two-thirds of the gluteus medius was identified and reflected anteriorly with a cuff of the vastus lateralis. The capsule was then identified and opened with an H-shaped capsulotomy. The fracture site was then identified and neck cut was then made allowing for exposure of the femoral head. The femoral head was then removed after resecting the ligamentum teres. The femoral head was sized to a size 51 mm head. Attention was then turned towards the femoral canal preparation. A box chisel was used to open the proximal lateral aspect of the femur followed by a canal finder and a lateralizing reamer. The canal was sequentially broached to a size 4. A trial standard neck with a 51 mm head was then placed onto the trial component and the hip manually reduced. It was brought through a full functional range of motion without any instability, impingement, or dislocation appreciated. The hip was then redislocated, the trial components removed, and the hip and proximal femur were then copiously irrigated. This was followed by application of a stem centralizer within the canal. Cement next was placed within the canal in the proximal femur and the final implant, consisting of a DePuy size 4 [place] femoral stem was then placed to the proximal femur. Excess cement was then removed. After hardening of the cement, the neck was placed as well as the 51 mm bipolar head. The hip was then reduced and brought through again a full functional range of motion without any instability, impingement or dislocation appreciated. Lengths were found to be equal to the contralateral leg. Copious irrigation was then performed followed by closure of the capsule with #5 Ethibond. This was also utilized to further reinforce the gluteus minimus and medius repair, as well as 0-Vicryl for the vastus lateralis repair. The tensor fascia was then closed with a running 0-Vicryl. Subcutaneous tissues were further reinforced also with Vicryl and a subcutaneous stitch. Bulky dressing was then applied. ESTIMATED BLOOD LOSS: 300 cc. COMPLICATIONS: None. DISPOSITION: The patient tolerated the procedure well. Anesthesia was reversed, and the patient was transferred to the PACU for recovery. IMPLANTS: DePuy size 4 mm [place] stem with a 51 mm bipolar head and a standard neck offset. POSTOPERATIVE PLAN: The patient will be admitted back to the floor and started on physical therapy. On postop day number one, he will be weightbearing as tolerated with a walker. Due to the patient's progress with physical therapy will determine where he gets discharged, either home with home health versus rehab versus intermediate facility. Based on the patient himself, it is likely he will be able to go home with home health likely by Sunday. He will follow up in the office with me in two weeks.
--- NOTE | 2016-12-08 14:38 | PCM.PNMED ---
Subjective Date of Service Dec 08, 2016 Subjective pain controlled,low grade temp and tachy noted Exam Vital Signs Vital Sign - Last Date Time Temp Pulse Resp B/P Pulse Ox O2 Delivery O2 Flow Rate FiO2 12/08/16 13:17 37.3 99 18 116/73 96 Room Air Intake and Output 12/07/16 12/07/16 12/08/16 Cumulative From/Thru 15:00 23:00 07:00 12/06/16 23:27 - 12/08/16 05:20 Intake Total 2039 ml 700 ml 2297 ml 5570 ml Output Total 450 ml 1775 ml 1800 ml 6100 ml Balance 1589 ml -1075 ml 497 ml -530 ml Intake Oral 500 ml 1100 ml 1700 ml IV Total 2039 ml 200 ml 1197 ml 3870 ml Output Urine Total 450 ml 1475 ml 1800 ml 5800 ml Estimated Blood Loss 300 ml 300 ml # Bowel Movements 0 0 0 Exam Constitutional: Middle-aged male in no acute distress Head: Normocephalic, atraumatic Eyes PERRLA DC EOMI Mouth: No lesions Neck: No adenopathy carotids 2+ over 4 without bruits Chest: Clear to auscultation Cor: Regular rate and rhythm S1-S2 without murmur Abdomen: Soft nontender bowel sounds present Extremities: No pedal edema, left hip surgical site cleanly dressed Skin: No rashes Neuro: Alert and oriented 3, motor strength is intact bilaterally IVs and Medications Medications Reviewed: Medications were reviewed in detail Lab and Diagnostics Result Diagram: 12/08/16 0530 12/07/16 0545 X-Rays, CTs and MRIs PROCEDURE: X-RAY CHEST ONE VIEW ([id number]) INDICATIONS: PRE-OP, left hip fracture. TECHNIQUE: One view of the chest was acquired. COMPARISON: None. FINDINGS: Surgical changes and devices: None. Lungs and pleura: No pleural effusions or pneumothorax. Lungs are clear. Calcified granuloma noted in the right lung apex. Mediastinum: Mediastinal contours appear normal. Heart size is normal. Bones and chest wall: No suspicious bony lesions. Overlying soft tissues appear unremarkable. IMPRESSION: No acute cardiopulmonary disease process. Dictated by: Sindy Canela MD, PhD on 12/06/2016 at 20:51 Approved by: Sindy Canela MD, PhD on 12/06/2016 at 20:52 Additional Diagnostics DATE OF SURGERY: 12/07/2016 SURGEON: Cristian Quintero DO. PREOPERATIVE DIAGNOSIS(ES): Left displaced intracapsular femoral neck fracture. POSTOPERATIVE DIAGNOSIS(ES): Left displaced intracapsular femoral neck fracture. PROCEDURE: Left hip hemiarthroplasty. HEALTH ADMINISTRATOR: Martha Guzman PA-C. The assistance of Armin Guzman PA-C, was necessary for help with retraction as well as for dislocation and relocation of the hip prosthesis. She was also used for primary closure at the conclusion of the case. ANESTHESIA: General. Assessment & Plan # Left femoral neck fracture, acute, present on admission -s/p Left hip hemiarthroplasty on 12/07 -IV morphine when necessary pain -patient able to take > 2 flight of stairs with out any issues .METs 4-10 .medically optimized for procedure -PT eval -dvt ppx lovenox -low grade fever likely reactive to surgical stress #CODE STATUS -full disposition: likely home on Sunday VTE Prophylaxis: Sub-Q Enoxaparin (Lovenox 40 mg subcutaneous daily 28 days postop for DVT prophylaxis), SCDs (bilateral SCDs), HOLLEY Hose (bilateral thigh- high HOLLEY hose) VTE Mechanical Devices: Intermittant Pneumatic CD Resuscitation Status: CPR: Attempt Resuscitation Aden Cameron MD Dec 08, 2016 14:38
[2016-12-08] MEDS: Sodium Chloride LOK Flush 10 mL Syringe IVFLUSH SCH (16:30)
--- NOTE | 2016-12-08 18:12 | NUR ---
Pain No c/o pain at rest, patient resistant to take narcotics, provider encouraged to pre-medicate w/ [place] 7.5/350mg before PT, agreeable, tabs x 2 admin during shift, tolerating well, stated it's helped w/ activity related pain. Continuing to monitor.
[2016-12-09] MEDS: Sodium Chloride LOK Flush 10 mL Syringe IVFLUSH SCH ×3 (00:30→16:30)
--- NOTE | 2016-12-09 00:31 | NUR ---
Pain/Activity On initial assessment, patient denies any pain. Patient is bedrest this shift but stated physical therapy went well today. Patient has good sensation on affected side. KRISTEN. BALJEETS. Call light within reach. Care continues.
[2016-12-09] MEDS: Sodium Chloride LOK Flush 10 mL Syringe IV SCH ×3 (00:46→16:30)
[2016-12-09] MEDS: HYDROcodone-APAP 7.5-325 mg Tablet PO PRN (05:10)
[2016-12-09 08:35] VITALS: BP 112/67; PULSE 90; RESP 18; O2SAT 100
[2016-12-09] MEDS: Senna-Docusate 8.6-50 mg Tablet PO SCH ×2 (08:36→20:30)
--- NOTE | 2016-12-09 10:16 | PCM.PNORTH ---
Subjective Date of Service: Dec 09, 2016 Visit Information: Reason for Visit L Femoral Neck Fracture Surgery/Surgery Date Post-Op Day # 2 Date of Admission: Dec 06, 2016 at 22:21 Hospital Day # Subjective Patient states he is feeling fine today. He states his pain is well controlled. He states he has been up and moving well with PT. Sister expresses concerns that when discharged, he will be up and about too much and over do it. She is also concerned about needing a walker and safety bars for their home and would like to talk to rn social services about obtaining these. Postop General: No Complaints, No Shortness of Breath, No Chest Pain, Good Appetite Pain Management: PO Objective Exam Objective Patient sitting up in bed Vital Signs and I/O Vital Sign - Last Date Time Temp Pulse Resp B/P Pulse Ox O2 Delivery O2 Flow Rate FiO2 12/09/16 08:35 36.6 90 18 112/67 100 Room Air Intake and Output 12/08/16 12/08/16 12/09/16 Cumulative From/Thru 15:00 23:00 07:00 12/06/16 23:27 - 12/09/16 05:27 Intake Total 1620 ml 400 ml 7590 ml Output Total 1725 ml 800 ml 8625 ml Balance -105 ml -400 ml -1035 ml Intake Oral 1600 ml 400 ml 3700 ml IV Total 20 ml 3890 ml Output Urine Total 1725 ml 800 ml 8325 ml Estimated Blood Loss 300 ml # Bowel Movements 0 0 0 Result Diagram: 12/08/16 0530 12/07/16 0545 Extremities: Distal Pulses Palpable, No Compartment Syndrom Noted, Tenderness/ Swelling Noted Postop Sensory Motor: Distal Motor Intact, Movement in Toes, Distal Sensation Intact, NVI Distally SURGICAL WOUND : Wound Location/Description Perioperative dressing changed today to an island dressing. Incision is well approximated and absent of erythema or drainage. Area of swelling surround incision. Steri-strips left in place. Island dressing placed over incision. Incision General Appearance: Well Approximated, Incision Healing Dressing & Drainage Status: Changed Activity: Activity per PT, Ambulate with PT (weightbearing as tolerated on the left lower extremity using a front wheeled walker.) Catheters: None Assessment & Plan Impression POD#2 left hip hemiarthroplasty Problems: Plan Weightbearing: Weightbearing as tolerated with a front wheeled walker vs possible crutches. DVT prophylaxis: Lovenox 40mg SQ QD 28 days postop for DVT prophylaxis. Physical therapy for transfers, progressive ambulation, strengthening Wound care: Dressing was changed today. Change as needed in the future. Analgesia: Continue oral pain management Discharge plan: Discharge home in 1-2 days. May need home health, will continue to monitor PT notes. Placed an order for knee high compression stockings. Please place these on the patient today and, if possible, explain to spouse how to safely put them on the patient when at home. Prescription for walker placed in chart. Social work please consult patient on where best to get DME. I can write for anything they need. They live in [place] and are unclear on where to go. Follow-up plan: In 2 weeks at [facility] with LORIN for wound check and at [address] Quintero with x-rays VTE Prophylaxis: Sub-Q Enoxaparin (Lovenox 40 mg subcutaneous daily 28 days postop for DVT prophylaxis), SCDs (bilateral SCDs), HOLLEY Hose (bilateral thigh- high HOLLEY hose) Resuscitation Status: CPR: Attempt Resuscitation Tamia Richard PA-C Dec 09, 2016 10:16
[2016-12-09] MEDS: 0.9% Sodium Chloride 1,000 ML IV SCH ×2 (12:04→21:24)
[2016-12-09 12:42] VITALS: BP 111/68; PULSE 96; RESP 18; O2SAT 99
--- NOTE | 2016-12-09 12:42 | PCM.PNMED ---
Subjective Date of Service Dec 09, 2016 Subjective Patient was unable to participate with physical therapy today because of lightheadedness on standing . SBP in 100's.Pain controlled Exam Vital Signs Vital Sign - Last Date Time Temp Pulse Resp B/P Pulse Ox O2 Delivery O2 Flow Rate FiO2 12/09/16 08:35 36.6 90 18 112/67 100 Room Air Intake and Output 12/08/16 12/08/16 12/09/16 Cumulative From/Thru 15:00 23:00 07:00 12/06/16 23:27 - 12/09/16 05:27 Intake Total 1620 ml 400 ml 7590 ml Output Total 1725 ml 800 ml 8625 ml Balance -105 ml -400 ml -1035 ml Intake Oral 1600 ml 400 ml 3700 ml IV Total 20 ml 3890 ml Output Urine Total 1725 ml 800 ml 8325 ml Estimated Blood Loss 300 ml # Bowel Movements 0 0 0 Exam Constitutional: Middle-aged male in no acute distress Head: Normocephalic, atraumatic Eyes PERRLA DC EOMI Mouth: No lesions Neck: No adenopathy carotids 2+ over 4 without bruits Chest: Clear to auscultation Cor: Regular rate and rhythm S1-S2 without murmur Abdomen: Soft nontender bowel sounds present Extremities: No pedal edema, left hip surgical site cleanly dressed Skin: No rashes Neuro: Alert and oriented 3, motor strength is intact bilaterally IVs and Medications Medications Reviewed: Medications were reviewed in detail Lab and Diagnostics Result Diagram: 12/08/16 0530 12/07/16 0545 X-Rays, CTs and MRIs PROCEDURE: X-RAY CHEST ONE VIEW ([id number]) INDICATIONS: PRE-OP, left hip fracture. TECHNIQUE: One view of the chest was acquired. COMPARISON: None. FINDINGS: Surgical changes and devices: None. Lungs and pleura: No pleural effusions or pneumothorax. Lungs are clear. Calcified granuloma noted in the right lung apex. Mediastinum: Mediastinal contours appear normal. Heart size is normal. Bones and chest wall: No suspicious bony lesions. Overlying soft tissues appear unremarkable. IMPRESSION: No acute cardiopulmonary disease process. Dictated by: Sindy Canela MD, PhD on 12/06/2016 at 20:51 Approved by: Sindy Canela MD, PhD on 12/06/2016 at 20:52 Additional Diagnostics DATE OF SURGERY: 12/07/2016 SURGEON: Cristian Quintero DO. PREOPERATIVE DIAGNOSIS(ES): Left displaced intracapsular femoral neck fracture. POSTOPERATIVE DIAGNOSIS(ES): Left displaced intracapsular femoral neck fracture. PROCEDURE: Left hip hemiarthroplasty. ASSISTANT FOOTBALL COACH: Martha Guzman PA-C. The assistance of Armin Guzman PA-C, was necessary for help with retraction as well as for dislocation and relocation of the hip prosthesis. She was also used for primary closure at the conclusion of the case. ANESTHESIA: General. Assessment & Plan # Left femoral neck fracture, acute, present on admission -s/p Left hip hemiarthroplasty on 12/07 -IV morphine when necessary pain -PT eval -dvt ppx lovenox -low grade fever likely reactive to surgical stress -fall is mechanical # Lightheadedness -patient states he drinks adequate water . -cbc.cmp -NS at 100ml started #CODE STATUS -full disposition: likely home with for PT on Sunday VTE Prophylaxis: Sub-Q Enoxaparin (Lovenox 40 mg subcutaneous daily 28 days postop for DVT prophylaxis), SCDs (bilateral SCDs), HOLLEY Hose (bilateral thigh- high HOLLEY hose) VTE Mechanical Devices: Intermittant Pneumatic CD Resuscitation Status: CPR: Attempt Resuscitation Aden Cameron MD Dec 09, 2016 12:42
[2016-12-09 12:43] LABS: BASOPHILS % (AUTO) 0.3 % (0-3); EOSINOPHILS % (AUTO) 0.9 % (0-5); MONOCYTES % (AUTO) 8.5 % (4-12); Mean Corpuscular Hemoglobin 32.8 pg (27.0-35.0); Mean Corpuscular Volume 97.2 fL (81-100); NEUTROPHILS % (AUTO) 81.5 % (40-74); Platelet Count 173 bil/L (150-400)
[2016-12-09 16:15] VITALS: BP 100/61; PULSE 115
[2016-12-09 16:18] VITALS: BP 63/34; PULSE 121
[2016-12-09 16:25] VITALS: BP 110/68; PULSE 100
--- NOTE | 2016-12-09 16:35 | NUR ---
Orthostatic BP Drop BP dropped when standing this a.m. w/ PT, see PT note. NS @ 125ml/hr started, patient also symptomatic/dizzy during episode. Repeat ortho set @ 1615, sitting BP (on commode) 100/61, standing 63/34, once back in bed 110/68. paged to be made aware, order to have patient measured for bilateral thigh high conchita hose. Continuing to monitor. Order placed for daily ortho set, plan to pass on to oncoming shift.
[2016-12-09 20:02] VITALS: BP 106/67; PULSE 110; RESP 18; O2SAT 97
[2016-12-10] VITALS (7 sets, daily range): BP systolic 81–121; BP diastolic 43–80; PULSE 84–98; RESP 16–18; O2SAT 98–100
[2016-12-10] MEDS: Sodium Chloride LOK Flush 10 mL Syringe IV SCH ×4 (00:30→22:21)
[2016-12-10] MEDS: Sodium Chloride LOK Flush 10 mL Syringe IVFLUSH SCH ×4 (00:30→22:21)
--- NOTE | 2016-12-10 05:30 | NUR ---
activity pt has denied pain this shift. he says it is "amazing" how little pain he has had. he has not gotten out of bed this shift but has demonstrated his leg exercises and says they feel easier then yesterday. he has no complaints at this time and has been resting comfortably. care continues.
[2016-12-10] MEDS: Senna-Docusate 8.6-50 mg Tablet PO SCH ×2 (07:51→20:30)
[2016-12-10] MEDS: 0.9% Sodium Chloride 1,000 ML IV SCH ×2 (07:51→17:38)
--- NOTE | 2016-12-10 10:25 | DRSVH ---
PROCEDURE: X-RAY CHEST ONE VIEW, PORTABLE ([id number]) INDICATIONS: fever TECHNIQUE: One view of the chest was acquired. COMPARISON: None. FINDINGS: Surgical changes and devices: None. Lungs and pleura: No pleural effusions or pneumothorax. Lungs are clear. Mediastinum: Mediastinal contours appear normal. Heart size is normal. Bones and chest wall: No suspicious bony lesions. Overlying soft tissues appear unremarkable. IMPRESSION: No acute cardiopulmonary findings. Dictated by: Nisha Deal M.D. on 12/10/2016 at 10:23 Approved by: Nisha Deal M.D. on 12/10/2016 at 10:24
[2016-12-10 10:36] LABS: BASOPHILS % (AUTO) 0.3 % (0-3); EOSINOPHILS % (AUTO) 2.2 % (0-5); MONOCYTES % (AUTO) 9.2 % (4-12); Mean Corpuscular Hemoglobin 33.1 pg (27.0-35.0); Mean Corpuscular Volume 96.1 fL (81-100); NEUTROPHILS % (AUTO) 78.7 % (40-74); Platelet Count 177 bil/L (150-400)
--- NOTE | 2016-12-10 10:50 | PCM.PNORTH ---
Subjective Date of Service: Dec 10, 2016 Visit Information: Reason for Visit L Femoral Neck Fracture Surgery/Surgery Date Post-Op Day # 3 Date of Admission: Dec 06, 2016 at 22:21 Hospital Day # Subjective Patient continues to have symptomatic hypotension when getting up to stand. He states he becomes dizzy and lightheaded and shaky. Postop General: No Complaints, No Shortness of Breath, No Chest Pain, Good Appetite Pain Management: PO Objective Exam Objective Patient sitting up in bed. Vital Signs and I/O Vital Sign - Last Date Time Temp Pulse Resp B/P Pulse Ox O2 Delivery O2 Flow Rate FiO2 12/10/16 08:09 115/68 12/10/16 07:52 37.3 98 16 100 Room Air Intake and Output 12/09/16 12/09/16 12/10/16 Cumulative From/Thru 15:00 23:00 07:00 12/06/16 23:27 - 12/10/16 06:33 Intake Total 1693 ml 2421 ml 39972 ml Output Total 1750 ml 3250 ml 75394 ml Balance -57 ml -829 ml -1921 ml Intake Oral 1037 ml 2421 ml 7158 ml IV Total 656 ml 4546 ml Output Urine Total 1750 ml 3250 ml 28432 ml Estimated Blood Loss 300 ml # Bowel Movements 1 0 1 Lab & Micro Results Laboratory Tests Test 12/09/16 12:25 12/10/16 10:10 12/10/16 10:29 White Blood Count 8.0th/mm3 (3.8-10.1) 6.7th/mm3 (3.8-10.1) Red Blood Count 4.24mil/mm3 (4.40-5.80) 3.62mil/mm3 (4.40-5.80) Hemoglobin 13.9g/dL (13.8-17.2) 12.0g/dL (13.8-17.2) Hematocrit 41.2% (41.0-50.0) 34.8% (41.0-50.0) Mean Corpuscular Volume 97.2fL (81-100) 96.1fL (81-100) Mean Corpuscular Hemoglobin 32.8pg (27.0-35.0) 33.1pg (27.0-35.0) Mean Corpuscular Hemoglobin Concent 33.7% (32.0-37.0) 34.5% (32.0-37.0) Red Cell Distribution Width 12.7% (12.3-15.4) 12.1% (12.3-15.4) Platelet Count 173bil/L (150-400) 177bil/L (150-400) Neutrophils (%) (Auto) 81.5% (40-74) 78.7% (40-74) Lymphocytes (%) (Auto) 8.5% (14-46) 9.5% (14-46) Monocytes (%) (Auto) 8.5% (4-12) 9.2% (4-12) Eosinophils (%) (Auto) 0.9% (0-5) 2.2% (0-5) Basophils (%) (Auto) 0.3% (0-3) 0.3% (0-3) Sodium Level 135mEq/L (134-144) Potassium Level 4.2mEq/L (3.5-5.2) Chloride Level 97mEq/L (97-108) Carbon Dioxide Level 27mmol/L (18-29) Blood Urea Nitrogen 10mg/dL (8-27) Creatinine 0.52mg/dL (0.76-1.27) Estimat Glomerular Filtration Rate 169mL/min (>59) Glucose Level 125mg/dL (60-99) Calcium Level 8.2mg/dL (8.5-10.1) Total Bilirubin 1.0mg/dL (0.0-1.2) Aspartate Amino Transf (AST/SGOT) 35U/L (0-50) Alanine Aminotransferase (ALT/SGPT) 18U/L (0-44) Alkaline Phosphatase 38U/L (25-160) Total Protein 5.6g/dL (6.4-8.4) Albumin 3.2g/dL (3.4-5.0) Thyroid Stimulating Hormone (TSH) 1.920uIU/mL (0.450-4.500) Microbiology 12/10/16 Blood Culture, Received Pending Result Diagram: 12/10/16 1010 12/09/16 1225 General Appearance: Alert, Oriented X3, Cooperative, No Acute Distress Extremities: Distal Pulses Palpable, Warm, No Compartment Syndrom Noted, Thigh & Calf Soft/Nontender, Tenderness/Swelling Noted Postop Sensory Motor: Distal Motor Intact, Movement in Toes, Distal Sensation Intact, NVI Distally SURGICAL WOUND : Wound Location/Description Thigh high compression stockings in place. Dressings c/d/i Incision General Appearance: Well Approximated, Incision Healing Dressing & Drainage Status: Intact Activity: Activity per PT, Ambulate with PT (weightbearing as tolerated on the left lower extremity using a front wheeled walker.) Catheters: None Assessment & Plan Impression POD#3 left hip hemiarthroplasty Problems: Plan Patient has still not perform adequately with PT to be safe with discharge to home. This is primarily due to his orthostatic hypotension and puts him at an increased fall risk if discharged to home therefore I agree with PT recommendations for SNF at this time. Weightbearing: Weightbearing as tolerated with a front wheeled walker vs possible crutches. DVT prophylaxis: Lovenox 40mg SQ QD 14 days postop for DVT prophylaxis. Patient is a very active adult and will likely only need Lovenox for 2 weeks. He should then take Aspirin 81mg BID x4 weeks, for a total of 6 weeks post- operative DVT prophylaxis Physical therapy for transfers, progressive ambulation, strengthening Wound care: Dressing was changed today. Change as needed in the future. Analgesia: Continue oral pain management Discharge plan: Discharge by hospitalist service to SNF when medically stable. Orthopedics will sign off at this time. Prescription for walker placed in chart. Follow-up plan: In 2 weeks at [facility] with LORIN for wound check and at [address] Quintero with x-rays VTE Prophylaxis: Sub-Q Enoxaparin (Lovenox 40 mg subcutaneous daily 28 days postop for DVT prophylaxis), SCDs (bilateral SCDs), HOLLEY Hose (bilateral thigh- high HOLLEY hose) Resuscitation Status: CPR: Attempt Resuscitation Tamia Richard PA-C Dec 10, 2016 10:50
[2016-12-10 11:04] LABS: Magnesium 1.7 mg/dL (1.6-2.6)
[2016-12-10 11:17] LABS: APPEARANCE,URINE CLEAR (CLEAR,HAZY); COLOR,URINE YELLOW (YELLOW); OCCULT BLOOD,URINE TRACE (NEGATIVE); UROBILINOGEN,URINE NORMAL (NORMAL)
--- NOTE | 2016-12-10 11:32 | NUR ---
Orthostatic Hypotension/Plan Ortho set this a.m.: Lying 121/74, sitting 109/68, standing 81/43 (symptomatic: dizziness, needing to sit down), Md & PT made aware. BP corrected once back in supine position, experienced an episode of chills once back to bed, Md made aware, afebrile, although, intermittent fever the last 3 days, blood cultures drawn & pending, cxray taken (WNL), labs drawn, continuing to monitor. PT currently working w/ patient, likely transfer to SNF for inpatient rehab.
[2016-12-10] MEDS: HYDROcodone-APAP 7.5-325 mg Tablet PO PRN ×2 (11:40→11:41)
[2016-12-10] MEDS ORDERED: Magnesium Sulf 2 Gm/50mL Water 2 GM in IV Premix 1 EACH IV ONE (16:05)
[2016-12-10] MEDS ORDERED: Sodium-Potassium Phosphorus Packet PO ONE (16:05)
--- NOTE | 2016-12-10 16:11 | PCM.PNMED ---
Subjective Date of Service Dec 10, 2016 Subjective Patient continues to have lightheadedness and orthostatic Hypotension despite IV fluids. BP 81/43.had SBP 30 point drop yesterday. Had brief tachycardia due to pain today. Exam Vital Signs Vital Sign - Last Date Time Temp Pulse Resp B/P Pulse Ox O2 Delivery O2 Flow Rate FiO2 12/10/16 08:09 115/68 12/10/16 07:52 37.3 98 16 100 Room Air Intake and Output 12/09/16 12/09/16 12/10/16 Cumulative From/Thru 15:00 23:00 07:00 12/06/16 23:27 - 12/10/16 06:33 Intake Total 1693 ml 2421 ml 41796 ml Output Total 1750 ml 3250 ml 28942 ml Balance -57 ml -829 ml -1921 ml Intake Oral 1037 ml 2421 ml 7158 ml IV Total 656 ml 4546 ml Output Urine Total 1750 ml 3250 ml 67942 ml Estimated Blood Loss 300 ml # Bowel Movements 1 0 1 Exam Constitutional: Middle-aged male in no acute distress Head: Normocephalic, atraumatic Eyes PERRLA DC EOMI Mouth: No lesions Neck: No adenopathy carotids 2+ over 4 without bruits Chest: Clear to auscultation Cor: Regular rate and rhythm S1-S2 without murmur Abdomen: Soft nontender bowel sounds present Extremities: No pedal edema, left hip surgical site cleanly dressed . not warm to touch Skin: No rashes Neuro: Alert and oriented 3, motor strength is intact bilaterally IVs and Medications Medications Reviewed: Medications were reviewed in detail Lab and Diagnostics Result Diagram: 12/10/16 1010 12/10/16 1010 X-Rays, CTs and MRIs PROCEDURE: X-RAY CHEST ONE VIEW ([id number]) INDICATIONS: PRE-OP, left hip fracture. TECHNIQUE: One view of the chest was acquired. COMPARISON: None. FINDINGS: Surgical changes and devices: None. Lungs and pleura: No pleural effusions or pneumothorax. Lungs are clear. Calcified granuloma noted in the right lung apex. Mediastinum: Mediastinal contours appear normal. Heart size is normal. Bones and chest wall: No suspicious bony lesions. Overlying soft tissues appear unremarkable. IMPRESSION: No acute cardiopulmonary disease process. Dictated by: Sindy Canela MD, PhD on 12/06/2016 at 20:51 Approved by: Sindy Canela MD, PhD on 12/06/2016 at 20:52 Additional Diagnostics DATE OF SURGERY: 12/07/2016 SURGEON: Cristian Quintero DO. PREOPERATIVE DIAGNOSIS(ES): Left displaced intracapsular femoral neck fracture. POSTOPERATIVE DIAGNOSIS(ES): Left displaced intracapsular femoral neck fracture. PROCEDURE: Left hip hemiarthroplasty. MATERIAL CLERK: Martha Guzman PA-C. The assistance of Armin Guzman PA-C, was necessary for help with retraction as well as for dislocation and relocation of the hip prosthesis. She was also used for primary closure at the conclusion of the case. ANESTHESIA: General. Assessment & Plan # Left femoral neck fracture, acute, present on admission -s/p Left hip hemiarthroplasty on 12/07 -IV morphine when necessary pain -PT eval -dvt ppx lovenox -low grade fever likely reactive to surgical stress -fall is mechanical # Lightheadedness/orthostatic hypotension -unclear etiology -doesnot seem to have sepsis clinically -only low grade fever, no leukocytosis,no symptoms except orthostatic hypotension,procal 0.33 -Patient initially stated initial fall while hiking was mechanical, But he is not sure if he felt lightheaded before he fell -patient states he drinks adequate water when hiking and also here -NS at 100ml started #CODE STATUS -full disposition: likely SNF patient lives in [facility] with his sister ,he came to this area for hiking trip .may need to get SNF in his area VTE Prophylaxis: Sub-Q Enoxaparin (Lovenox 40 mg subcutaneous daily 28 days postop for DVT prophylaxis), SCDs (bilateral SCDs), HOLLEY Hose (bilateral thigh- high HOLLEY hose) VTE Mechanical Devices: Intermittant Pneumatic CD, Anti-Embolic stockings Resuscitation Status: CPR: Attempt Resuscitation Aden Cameron MD Dec 10, 2016 16:11
[2016-12-11] VITALS (8 sets, daily range): BP systolic 94–122; BP diastolic 60–72; PULSE 81–102; RESP 16–18; O2SAT 97–99
[2016-12-11] MEDS: HYDROcodone-APAP 7.5-325 mg Tablet PO PRN ×3 (01:50→14:42)
[2016-12-11] MEDS: 0.9% Sodium Chloride 1,000 ML IV SCH (04:47)
--- NOTE | 2016-12-11 04:58 | NUR ---
activity/pain pt denied pain at start of shift. he slept until 0200 at which time he called for nurse and nurse found him breathing rapidly, sweating and shaking. pt stated that he had been doing his leg exercises and all the sudden started to shake. VSS and WNL, afebrile, no hypotension. pt stated that his pain was only a 2/10 but he appeared to be wincing with every movement so pain medication was offered. pt took 2 norcos. upon reassessment he was resting comfortably in bed with no more shaking or chills. nurse educated pt on requesting pain medication before doing his leg exercises. bed in low position, call light within reach. care continues.
[2016-12-11] MEDS: Sodium Chloride LOK Flush 10 mL Syringe IVFLUSH SCH ×2 (08:30→16:30)
[2016-12-11] MEDS: Sodium Chloride LOK Flush 10 mL Syringe IV SCH ×2 (08:30→17:30)
[2016-12-11] MEDS: Senna-Docusate 8.6-50 mg Tablet PO SCH ×2 (08:57→21:13)
--- NOTE | 2016-12-11 13:24 | NUR ---
Social Work- Continued D/C Planning Data: EMR reviewed. Pt is on day 5 of hospitalization. Pt discussed in multidisciplinary rounds, pt is POD 4. PT is recommending SNF but pt wants to return home. requested PT work with pt this am before determining if SNF vs. HH is indicated. PT worked with pt this AM and pt's BP presented a challenge. PT continues to recommend SNF. Pt has not completed stair trial. SW informed that pt was not agreeable to SNF discharge, SW met with pt at bedside regarding d/c plan. Pt is motivated to go home and believes that his sister will be able to assist him at home. Pt declined SNF referral and was not agreeable at that time. T/C to pt's sister Baylee regarding SNF recommendation and pt's resistance to go to SNF. Baylee also feels strongly that pt should go to SNF as he is not functionally mobile and although Baylee is a good support she will not be there 13/11. Pt's home is also not set up with medical equipment and needs to be adapted to suit pt as well. SALES PROJECT ENGINEER spoke with MD regarding this, MD again strongly recommending that pt go to SNF. spoke with pt at bedside regarding d/c plan. After this conversation, pt agreeable to SNF. T/C to Baylee, she is happy that pt is agreeable to SNF. Baylee and pt are familiar with some SNF in [place] near their home and SALES PROJECT ENGINEER worked with Baylee and medicare.gov website to find [facility] contracted facilities close to pt's home. UR Specialist requested to make referrals to 1) [facility] and [facility] 2) [facility] acute unit, 3) [facility]. UR Specialist aware that pt is medically ready for d/c pending accepting facility. UR Specialist also asked to consult about transportation options to the facility if available. SW discussed with pt and sister that transportation out of [facility] is often not provided by SNFs and that the hospital does not provide transportation. SW discussed transport via POV with sister or private pay wheelchair van. Sister is agreeable to pt riding in her vehicle but is concerned with pt's ability to complete this due to his hip fracture. Pt's sister is nervous about the cost of a private pay wheelchair van as facilities are 80+ miles away. Transportation concerns will be communicated to , quotes will be obtained when accepting facility is found. No accepting facilities at the time of this note. Assessment: Pt for whom SNF is medically necessary Plan: Pt to d/c to SNF pending accepting facility in [place]. Referrals have been made to 1) [facility] and [facility] 2) [facility] 3) [facility]. SW will continue to follow. DAO Ibarra
--- NOTE | 2016-12-11 13:27 | NUR ---
per PIPEMAN rearlene. faxed clinicals to [facility], and Diana at [phone].
--- NOTE | 2016-12-11 16:22 | PCM.PNMED ---
Subjective Date of Service Dec 11, 2016 Subjective Lightheadedness and orthostatic hypotension improved with IV fluids.PT eval rec SNF, awaiting placement to SNF Exam Vital Signs Vital Sign - Last Date Time Temp Pulse Resp B/P Pulse Ox O2 Delivery O2 Flow Rate FiO2 12/11/16 12:47 36.8 81 16 108/71 98 Room Air Intake and Output 12/10/16 12/10/16 12/11/16 Cumulative From/Thru 15:00 23:00 07:00 12/06/16 23:27 - 12/11/16 06:17 Intake Total 1320 ml 2736 ml 2201 ml 06407 ml Output Total 1150 ml 1750 ml 83745 ml Balance 1320 ml 1586 ml 451 ml 1436 ml Intake Oral 1773 ml 951 ml 9882 ml IV Total 1320 ml 963 ml 1250 ml 8079 ml Output Urine Total 1150 ml 1750 ml 01624 ml Estimated Blood Loss 300 ml # Bowel Movements 0 1 Exam Constitutional: Middle-aged male in no acute distress Head: Normocephalic, atraumatic Eyes PERRLA DC EOMI Mouth: No lesions Neck: No adenopathy carotids 2+ over 4 without bruits Chest: Clear to auscultation Cor: Regular rate and rhythm S1-S2 without murmur Abdomen: Soft nontender bowel sounds present Extremities: No pedal edema, left hip surgical site cleanly dressed . not warm to touch Skin: No rashes Neuro: Alert and oriented 3, motor strength is intact bilaterally IVs and Medications Medications Reviewed: Medications were reviewed in detail Lab and Diagnostics Result Diagram: 12/10/16 1010 12/10/16 1010 X-Rays, CTs and MRIs PROCEDURE: X-RAY CHEST ONE VIEW ([id number]) INDICATIONS: PRE-OP, left hip fracture. TECHNIQUE: One view of the chest was acquired. COMPARISON: None. FINDINGS: Surgical changes and devices: None. Lungs and pleura: No pleural effusions or pneumothorax. Lungs are clear. Calcified granuloma noted in the right lung apex. Mediastinum: Mediastinal contours appear normal. Heart size is normal. Bones and chest wall: No suspicious bony lesions. Overlying soft tissues appear unremarkable. IMPRESSION: No acute cardiopulmonary disease process. Dictated by: Sindy Canela MD, PhD on 12/06/2016 at 20:51 Approved by: Sindy Canela MD, PhD on 12/06/2016 at 20:52 Additional Diagnostics DATE OF SURGERY: 12/07/2016 SURGEON: Cristian Quintero DO. PREOPERATIVE DIAGNOSIS(ES): Left displaced intracapsular femoral neck fracture. POSTOPERATIVE DIAGNOSIS(ES): Left displaced intracapsular femoral neck fracture. PROCEDURE: Left hip hemiarthroplasty. AUDITING CODER: Martha Guzman PA-C. The assistance of Armin Guzman PA-C, was necessary for help with retraction as well as for dislocation and relocation of the hip prosthesis. She was also used for primary closure at the conclusion of the case. ANESTHESIA: General. Assessment & Plan # Left femoral neck fracture, acute, present on admission -s/p Left hip hemiarthroplasty on 12/07 -IV morphine or [place] when necessary pain -PT eval rec SNF,SW working to get him a SNF in [facility],closer to his home -dvt ppx lovenox -low grade fever likely reactive to surgical stress -fall likely mechanical -per orthopedics Weightbearing: Weightbearing as tolerated with a front wheeled walker vs possible crutches. DVT prophylaxis: Lovenox 40mg SQ QD 14 days postop for DVT prophylaxis. Patient is a very active adult and will likely only need Lovenox for 2 weeks. He should then take Aspirin 81mg BID x4 weeks, for a total of 6 weeks post- operative DVT prophylaxis Physical therapy for transfers, progressive ambulation, strengthening Wound care: Dressing was changed today. Change as needed in the future. Analgesia: Continue oral pain management Prescription for walker placed in chart. Follow-up plan: In 2 weeks at [facility] with LORIN for wound check and at [address] Quintero with x-rays # Lightheadedness/orthostatic hypotension, improving -unclear etiology -doesnot seem to have sepsis clinically -only low grade fever, no leukocytosis,no symptoms except orthostatic hypotension,procal 0.33 -Patient initially stated initial fall while hiking was mechanical, But he is not sure if he felt lightheaded before he fell -patient states he drinks adequate water when hiking -NS at 100ml started #CODE STATUS -full disposition: PT rec SNF , patient initially reluctant to go to longterm facility and wanted to go home , eventually agreed to go to longterm facility per physical therapy recommendation patient lives in [facility] with his sister ,he came to this area for hiking trip . SW working to get him a SNF in [facility],closer to his home VTE Prophylaxis: Sub-Q Enoxaparin (Lovenox 40 mg subcutaneous daily 28 days postop for DVT prophylaxis), SCDs (bilateral SCDs), HOLLEY Hose (bilateral thigh- high HOLLEY hose) VTE Mechanical Devices: Anti-Embolic stockings Resuscitation Status: CPR: Attempt Resuscitation Aden Cameron MD Dec 11, 2016 16:22
--- NOTE | 2016-12-11 18:14 | NUR ---
Activity/Orthostatic hypotension: Patient asymptomatic during ortho BP this am with CCU NURSE. Slightly symptomatic when up with PT during longer activity, recovered quickly. MD aware, Plan to d/c to SNF tomorrow, awaiting placement. Will continue to monitor.
[2016-12-12] MEDS: Sodium Chloride LOK Flush 10 mL Syringe IV SCH ×2 (00:30→08:03)
[2016-12-12] MEDS: Sodium Chloride LOK Flush 10 mL Syringe IVFLUSH SCH ×2 (00:30→08:03)
[2016-12-12] MEDS: HYDROcodone-APAP 7.5-325 mg Tablet PO PRN ×3 (02:55→13:01)
--- NOTE | 2016-12-12 05:48 | NUR ---
Orthostatic monitoring BP for hypotension. Pt states no headache, dizzyness, SOB, or chest pain. He requests PRN norco once this shift for leg pain. Food and water being provided by sister, unable to track that input accurately but he is eating and drinking sufficiently. Thigh high teds and dressing CDI. Care continues
[2016-12-12 07:11] VITALS: BP 109/68; PULSE 99; RESP 18; O2SAT 95
[2016-12-12] MEDS: Senna-Docusate 8.6-50 mg Tablet PO SCH (08:02)
[2016-12-12 08:16] VITALS: BP 138/89; PULSE 73; RESP 18; O2SAT 97
[2016-12-12 08:33] LABS: BASOPHILS % (AUTO) 0.6 % (0-3); EOSINOPHILS % (AUTO) 8.3 % (0-5); MONOCYTES % (AUTO) 12.3 % (4-12); Mean Corpuscular Hemoglobin 32.7 pg (27.0-35.0); Mean Corpuscular Volume 96.7 fL (81-100); NEUTROPHILS % (AUTO) 62.3 % (40-74); Platelet Count 241 bil/L (150-400)
--- NOTE | 2016-12-12 08:53 | NUR ---
SENIOR CARE TRANSFER FOLLOW UP: Left message for [facility] in [place], asked about referral and potential acceptance. Asked for call back as soon as possible. Patient is stable for discharge. Spoke with Admissions at [facility] and they have not reviewed patient yet. They will review and call back with 15-20 mins. Let her know patient is ready to go. Updated LIBRARY AIDE and let her know we should get local preference as well in case patient is not accepted in [place]. Patient is ready for discharge.
[2016-12-12 08:54] LABS: Magnesium 1.8 mg/dL (1.6-2.6)
--- NOTE | 2016-12-12 10:36 | NUR ---
Social Work- Readiness for Discharge Data: EMR reviewed. Pt discussed in multidisciplinary rounds. Pt is medically ready for discharge, but no facilities in [place] have accepted patient at this time. PT and MD continue to agree that pt requires SNF at d/c. OSEI and TREASURE RN met with pt at bedside and explained that pt should make local SNF choice as he is medically ready and is at risk for receiving a bill. Pt is agreeable, SW left SNF choice list at bedside and provided pt with 30 minutes to make SNF choice. OSEI also called and updated his sister Baylee regarding barriers to d/c and risk of HIN. Baylee understands and is agreeable, will call her brother as well. SW will continue to follow. Assessment: Pt for whom SNF is medically necessary Plan: Pt to d/c to SNF, awaiting accepting facility. SW to follow up with pt at regarding local SNF choice. SW will continue to follow. DAO Ibarra Addendum: 12/12/16 at 1113 by MARSHA CUEVA OSEI met with pt at bedside regarding SNF choice. Pt chose 1) [facility] ([facility]) and 2) [facility] and [facility] DAO Ibarra Addendum: 12/12/16 at 1158 by MARSHA CUEVA SS Pt requested CORRUGATED FASTENER DRIVER also add [facility] and facilities in [place] to the list of potential SNF's. Per [facility] ([facility]) is actively reviewing pt. Prior to sending any additional referrals, SW waiting to hear if pt's first choice is willing to accept pt. SW will follow. Latonia Cueva, DAO
--- NOTE | 2016-12-12 11:36 | NUR ---
RETIREMENT PLACEMENT FOLLOW UP: Gave access and faxed facesheet to [facility] this is patient's next preference after both [facility] facilities.
--- NOTE | 2016-12-12 11:54 | PCM.DIMED ---
Discharge Instructions Date of Service Dec 12, 2016 Dates of Hospitalization Dec 06, 2016 at 22:21 Discharge Diagnosis Discharge Diagnosis # Left femoral neck fracture, acute, present on admission -s/p Left hip hemiarthroplasty on 12/07 # Lightheadedness/orthostatic hypotension of unclear etiology, probably due to poor oral intake, improving Diet Discharge Diet: No restrictions Activity Discharge Activity: Home Health Phyical Therapy (at [facility] facility) Call your provider Call your provider for: Fever or Chills, Shortness of breath, Bleeding, Chest pain, Vomitting, Excessive diarrhea, Weakness (unilateral) Patient Instructions Patient Instructions You were hospitalized due to left femoral neck fracture. You underwent successful Left hip hemiarthroplasty on 12/07. You also had lightheadedness/ orthostatic hypotension of unclear etiology which responded to IV fluids, probably related to dehydration due to poor intake. Please keep yourself hydrated. Please continue physical therapy at [facility] facility. -per orthopedics Weightbearing: Weightbearing as tolerated with a front wheeled walker vs possible crutches. DVT prophylaxis: Lovenox 40mg SQ QD 14 days postop for DVT prophylaxis. Patient is a very active adult and will likely only need Lovenox for 2 weeks. He should then take Aspirin 81mg BID x4 weeks, for a total of 6 weeks post- operative DVT prophylaxis Physical therapy for transfers, progressive ambulation, strengthening Wound care: Dressing was changed today. Change as needed in the future. Analgesia: Continue oral pain management Prescription for walker placed in chart. Follow-up plan: In 2 weeks at [facility] with PA for wound check and at [address] Quintero with x-rays Follow-up with PCP in: 1 week Provider: Cristian Quintero DO Follow-up in: 2 weeks Aden Cameron MD Dec 12, 2016 11:54
[2016-12-12] MEDS ORDERED: ENOX40DI8 SUBQ (11:56)
[2016-12-12] MEDS ORDERED: POLY17PO6 PO (11:56)
[2016-12-12] MEDS ORDERED: DOCU-41 PO (11:56)
[2016-12-12] MEDS ORDERED: OXYC1TAB24 PO (11:56)
[2016-12-12] MEDS ORDERED: ASPI-973 PO (11:56)
--- NOTE | 2016-12-12 12:09 | NUR ---
Social Work- Discharge Data: EMR reviewed. Pt discussed in multidisciplinary rounds. Pt is medically ready for discharge. Pt has been accepted to [facility] ([facility] created packet and faxed orders. [facility] faxed. Pt updated and agreeable to plan. Pt's sister updated and agreeable to plan. Facility coordinated transportation at 1330. RN, UC, pt/family, , and [facility] are all updated and agreeable to plan. Assessment: Pt for whom SNF is medically necessary Plan: [facility] ([facility]) has accepted. Facility coordinated transportation at 1330. RN, UC, pt/family, , and [facility] are all updated and agreeable to plan. DAO Ibarra
--- NOTE | 2016-12-12 12:17 | PCM.DC.MED ---
Discharge Summary Date of Service Dec 12, 2016 Dates of Hospitalization Date of Hospital Admission Dec 06, 2016 at 22:21 Date of Discharge: Dec 12, 2016 Providers: Admitting Physician: Meche Marcus MD Primary Care Physician: N[place] Attending Physician: Aden Maier MD Diagnosis at Time of Discharge Diagnosis at Time of Discharge # Left femoral neck fracture, acute, present on admission -s/p Left hip hemiarthroplasty on 12/07 # Lightheadedness/orthostatic hypotension of unclear etiology, probably due to poor oral intake, improving Consultations orthopedics Dr Quintero Procedures XRay, CTs & MRIs PROCEDURE: X-RAY CHEST ONE VIEW ([id number]) INDICATIONS: PRE-OP, left hip fracture. TECHNIQUE: One view of the chest was acquired. COMPARISON: None. FINDINGS: Surgical changes and devices: None. Lungs and pleura: No pleural effusions or pneumothorax. Lungs are clear. Calcified granuloma noted in the right lung apex. Mediastinum: Mediastinal contours appear normal. Heart size is normal. Bones and chest wall: No suspicious bony lesions. Overlying soft tissues appear unremarkable. IMPRESSION: No acute cardiopulmonary disease process. Dictated by: Sindy Canela MD, PhD on 12/06/2016 at 20:51 Approved by: Sindy Canela MD, PhD on 12/06/2016 at 20:52 Other Diagnostics DATE OF SURGERY: 12/07/2016 SURGEON: Cristian Quintero DO. PREOPERATIVE DIAGNOSIS(ES): Left displaced intracapsular femoral neck fracture. POSTOPERATIVE DIAGNOSIS(ES): Left displaced intracapsular femoral neck fracture. PROCEDURE: Left hip hemiarthroplasty. WOOD SASH AND FRAME CARPENTER: Martha Guzman PA-C. The assistance of Armin Guzman PA-C, was necessary for help with retraction as well as for dislocation and relocation of the hip prosthesis. She was also used for primary closure at the conclusion of the case. ANESTHESIA: General. Brief History per HPI This is a 66-year-old male who presented to the emergency room with complaints of left hip pain. Earlier today he was hiking down in [place] and ended up slipping and falling. He lost his balance. So did hit his head and has superficial abrasion on left forehead area. Patient was brought in by EMS. His evaluation in the emergency room reveals transcervical fracture left femoral neck. This laceration of his forehead was closed with Dermabond in the emergency room. Patient denies any history of heart problems or pulmonary problems. He denies chest pain, shortness of breath, cough, fevers or chills. Hospital Course # Left femoral neck fracture, acute, present on admission -s/p Left hip hemiarthroplasty on 12/07 -IV morphine and Cambria when necessary pain,dischargfe on Cambria prn q6h -PT eval rec SNF,patient initially preferred a SNF in [facility],closer to his home.unable to get and eventually discharged to [place] -dvt ppx lovenox for 2 weeks I.e 10 more days and ASA 81 bid for 4 weeks -Had low grade fever likely reactive to surgical stress which resolved -fall likely mechanical but patient unsure if he felt lightheaded before falling -per orthopedics Weightbearing: Weightbearing as tolerated with a front wheeled walker vs possible crutches. DVT prophylaxis: Lovenox 40mg SQ QD 14 days postop for DVT prophylaxis. Patient is a very active adult and will likely only need Lovenox for 2 weeks. He should then take Aspirin 81mg BID x4 weeks, for a total of 6 weeks post- operative DVT prophylaxis Physical therapy for transfers, progressive ambulation, strengthening Wound care: Dressing was changed today. Change as needed in the future. Analgesia: Continue oral pain management Prescription for walker placed in chart. Follow-up plan: In 2 weeks at [facility] with PA for wound check and at [address] Quintero with x-rays # Lightheadedness/orthostatic hypotension, improving -unclear etiology which responded to IV fluids. Probably due to dehydration due to poor oral intake -doesnot seem to have sepsis clinically -only low grade fever, no leukocytosis,no symptoms except orthostatic hypotension,procal 0.33 -Patient initially stated initial fall while hiking was mechanical, But he is not sure if he felt lightheaded before he fell -patient states he drinks adequate water when hiking -NS at 100ml given #CODE STATUS -full disposition: PT rec SNF , patient initially reluctant to go to [facility] facility and wanted to go home , eventually agreed to go to [facility] facility per physical therapy recommendation patient lives in [facility] with his sister ,he came to this area for hiking trip . Discharge to [place] Exam Vital Signs (Last) Date Time Temp Pulse Resp B/P Pulse Ox O2 Delivery O2 Flow Rate FiO2 12/12/16 08:16 36.8 73 18 138/89 97 Room Air Exam Constitutional: Middle-aged male in no acute distress Head: Normocephalic, atraumatic Eyes PERRLA DC EOMI Mouth: No lesions Neck: No adenopathy carotids 2+ over 4 without bruits Chest: Clear to auscultation Cor: Regular rate and rhythm S1-S2 without murmur Abdomen: Soft nontender bowel sounds present Extremities: No pedal edema, left hip surgical site cleanly dressed . not warm to touch Skin: No rashes Neuro: Alert and oriented 3, motor strength is intact bilaterally Test 12/06/16 15:09 12/06/16 20:20 12/06/16 22:24 12/06/16 23:40 Urine Opiates Screen Negative Urine Methadone Screen Negative Urine Barbiturates Screen Negative Urine Amphetamines Screen Negative Urine Benzodiazepines Screen Negative Urine Cocaine Metabolite Screen Negative Urine Cannabinoids Screen Negative Hold Urine Received (Received) Hold Brown Top Tube Received (Received) Alcohols < 10mg/dL (0-10) Test 12/09/16 12:25 12/10/16 10:10 12/10/16 10:29 12/12/16 08:15 Thyroid Stimulating Hormone (TSH) 1.920uIU/mL (0.450-4.500) Procalcitonin 0.33ng/mL (0.00-0.08) Cortisol 15.9ug/dL (.) Urine Color Yellow (YELLOW) Urine Appearance Clear (CLEAR,HAZY) Urine pH 6.0 (5.0-8.0) Urine Specific [place] 1.009 (1.003-1.035) Urine Protein Negativemg/dL (NEG,TRACE) Urine Glucose (UA) Negativemg/dL (NEGATIVE) Urine Ketones Negativemg/dL (NEGATIVE) Urine Occult Blood Trace (NEGATIVE) Urine Nitrite Negative (NEGATIVE) Urine Bilirubin Negative (NEGATIVE) Urine Urobilinogen Normalmg/dL (NORMAL) Urine Leukocyte Esterase Negative (NEGATIVE) Urine RBC 0-2/hpf (0-2) Urine WBC 0-5/hpf (0-5) Urine Epithelial Cells Few/hpf (NONE-MOD) Urine Crystals None seen (NONE SEEN) Urine Bacteria None/hpf (NONE-FEW) Urine Hyaline Casts None/lpf (NONE) Urine Granular Casts None seen (NONE SEEN) Urine Waxy Casts None seen (NONE SEEN) Urine Red Blood Cell Casts None seen (NONE SEEN) Urine White Blood Cell Casts None seen (NONE SEEN) Urine Mucus None seen (None Seen) Urine Trichomonas None seen (NONE SEEN) Urine Yeast None (NONE SEEN) Urinalysis Comment None Urine Culture Reflexed Not indicated White Blood Count 5.2th/mm3 (3.8-10.1) Red Blood Count 3.30mil/mm3 (4.40-5.80) Hemoglobin 10.8g/dL (13.8-17.2) Hematocrit 31.9% (41.0-50.0) Mean Corpuscular Volume 96.7fL (81-100) Mean Corpuscular Hemoglobin 32.7pg (27.0-35.0) Mean Corpuscular Hemoglobin Concent 33.9% (32.0-37.0) Red Cell Distribution Width 12.0% (12.3-15.4) Platelet Count 241bil/L (150-400) Neutrophils (%) (Auto) 62.3% (40-74) Lymphocytes (%) (Auto) 16.3% (14-46) Monocytes (%) (Auto) 12.3% (4-12) Eosinophils (%) (Auto) 8.3% (0-5) Basophils (%) (Auto) 0.6% (0-3) Sodium Level 138mEq/L (134-144) Potassium Level 4.4mEq/L (3.5-5.2) Chloride Level 100mEq/L (97-108) Carbon Dioxide Level 26mmol/L (18-29) Blood Urea Nitrogen 9mg/dL (8-27) Creatinine 0.55mg/dL (0.76-1.27) Estimat Glomerular Filtration Rate 158mL/min (>59) Glucose Level 101mg/dL (60-99) Calcium Level 7.9mg/dL (8.5-10.1) Phosphorus Level 4.0mg/dL (2.5-4.9) Magnesium Level 1.8mg/dL (1.6-2.6) Total Bilirubin 0.7mg/dL (0.0-1.2) Aspartate Amino Transf (AST/SGOT) 42U/L (0-50) Alanine Aminotransferase (ALT/SGPT) 28U/L (0-44) Alkaline Phosphatase 34U/L (25-160) Total Protein 5.1g/dL (6.4-8.4) Albumin 2.8g/dL (3.4-5.0) Discharge Medications Discharge Medications Aspirin (Aspirin) 81 Mg Tablet 81 MG PO BID Prescribed by: ADEN MAIER MD Enoxaparin Sodium (Enoxaparin Sodium) 40 Mg/0.4 Ml Syringe 40 MG SUBQ Q24 Prescribed by: ADEN MAIER MD As needed Docusate Sodium (Colace) 100 Mg Capsule 100 MG PO BID PRN PRN For Constipation Prescribed by: ADEN MAIER MD Polyethylene Glycol 3350 (Miralax) 17 Gm Powd.pack 17 GM PO DAILY PRN PRN For Constipation Prescribed by: ADEN MAIER MD oxyCODONE-Acetaminophen 5-325 mg (oxyCODONE-Acetaminophen 5-325 mg) 1 Each Tablet 1 TAB PO Q4H PRN PRN For Pain Prescribed by: ADEN MAIER MD Miscellaneous Medications Ascorbic Acid/Ascorbate Sodium (Vit C-Evangelina Hips 500 mg Chew Tb) 500 Mg Tab.chew 2,000 MG PO (Reported) Followup Plan Disposition: custodial facility, [place] Discharge Diet: No restrictions Discharge Activity: Home Health Phyical Therapy (at [facility]) Patient Instructions You were hospitalized due to left femoral neck fracture. You underwent successful Left hip hemiarthroplasty on 12/07. You also had lightheadedness/ orthostatic hypotension of unclear etiology which responded to IV fluids, probably related to dehydration due to poor intake. Please keep yourself hydrated. Please continue physical therapy at [facility] facility. -per orthopedics Weightbearing: Weightbearing as tolerated with a front wheeled walker vs possible crutches. DVT prophylaxis: Lovenox 40mg SQ QD 14 days postop for DVT prophylaxis. Patient is a very active adult and will likely only need Lovenox for 2 weeks. He should then take Aspirin 81mg BID x4 weeks, for a total of 6 weeks post- operative DVT prophylaxis Physical therapy for transfers, progressive ambulation, strengthening Wound care: Dressing was changed today. Change as needed in the future. Analgesia: Continue oral pain management Prescription for walker placed in chart. Follow-up plan: In 2 weeks at [facility] with PA for wound check and at [address] Quintero with x-rays Follow-up with PCP in: 1 week Provider: Cristian Quintero DO Follow-up in: 2 weeks Time spent 35 minutes coordinating discharge copies to: Cristian Quintero Melaku MD Dec 12, 2016 12:17
--- NOTE | 2016-12-12 14:54 | NUR ---
Discharge Patient discharged to [facility] today for further rehab. Patient transported by van accessible to wheelchair. Patient's belongings gathered and sent along. Report called and given to admission nurse at facility.
== END 2016-12-12 13:30 | DRG 470 ==
LOC: EDBD 19:11 → SED 19:11 → OSC 22:21
PROVIDERS: ADMIT Specialist; ATTEND Specialist
PROC: 0HQ1XZZ Repair Face Skin, External Approach (ICD-10-PCS; 2016-12-06)
PROC: 0SRS0J9 Replacement of Left Hip Joint, Femoral Surface with Synthetic Substitute, Cemented, Open Approach (ICD-10-PCS; principal; 2016-12-07 13:00)
DX: S72.032A Displaced midcervical fracture of left femur, initial encounter for closed fracture (principal); I95.1 Orthostatic hypotension; S01.81XA Laceration without foreign body of other part of head, initial encounter; W17.81XA Fall down embankment (hill), initial encounter; Y93.89 Activity, other specified; Y92.89 Other specified places as the place of occurrence of the external cause; Z87.891 Personal history of nicotine dependence